=== PATIENT | female | born 1970 | race Caucasian/White ===

== ENCOUNTER → 2020-05-22 14:30 | Outpatient (BNVA) | payer OTHER, SELFPAY | PROVIDERS: PCP Family Medicine; Referring Provider Family Medicine; Visit Provider Physician Assistant | DX: K27.9 Peptic ulcer, site unspecified, unspecified as acute or chronic, without hemorrhage or perforation (principal); B96.81 Helicobacter pylori [H. pylori] as the cause of diseases classified elsewhere | CPT/HCPCS: 99212 ==

== ENCOUNTER → 2020-05-23 08:06 | Outpatient (REF) | payer OTHER, SELFPAY ==
--- NOTE | 2020-05-23 | NM_ITS ---
EXAMINATION: THYROID UPTAKE AND SCAN CLINICAL INFORMATION: Thyrotoxicosis. COMPARISON: None. TECHNIQUE: Following the oral administration of 294 microcuries of I-123 sodium iodide, thyroid uptake was performed and expressed as a percentage of the administrated dose. Gamma scintillation camera images of the thyroid in the anterior and right and left anterior oblique views were obtained using a pinhole collimator following the administration of 10 mCi Tc-99m pertechnetate. FINDINGS: The uptake is 11.5% at 4 hours and 28.7% at 24 hours (Normal radioiodine uptake at 24 hours is 10% to 30%). The radioiodine uptake is normal. The radiopertechnetate thyroid scintigram demonstrates the thyroid gland to be normal in size, shape, and position. There is homogeneous distribution of activity within the the gland with no focal abnormalities noted. The trapping function appears normal. A single anterior radioiodine image is similar to the radio pertechnetate image. NM/NM thyroid w uptake IMPRESSION: Normal radioiodine uptake. Normal thyroid scan.
== END ==
LOC: HO.NUCMED 08:06
PROVIDERS: Visit Provider Family Medicine
DX: E05.90 Thyrotoxicosis, unspecified without thyrotoxic crisis or storm (principal)
CPT/HCPCS: 78014; A9512; A9516

== ENCOUNTER → 2020-07-25 15:09 | Outpatient (BNVA) | payer OTHER, SELFPAY | PROVIDERS: PCP Family Medicine; Referring Provider Family Medicine; Visit Provider Internal Medicine | DX: E05.90 Thyrotoxicosis, unspecified without thyrotoxic crisis or storm (principal); E04.9 Nontoxic goiter, unspecified; E55.9 Vitamin D deficiency, unspecified | CPT/HCPCS: 99202 ==

== ENCOUNTER 2020-09-14 07:38 | Outpatient (REF) | payer OTHER, SELFPAY ==
[2020-09-14 09:38] LABS: Free T4 (Free Thyroxine) 1.08 ng/dL (0.71-1.85); Thyroid Stimulating Hormone 0.08 uIU/mL (0.32-4.0); Vitamin D 25-OH Total 56.4 ng/mL (>30)
[2020-09-15 15:36] LABS: Triiodothyronine T3 Total 104 ng/dL (76-181)
[2020-09-16 17:06] LABS: Thyroglobulin Antibodies 2 IU/mL (< or = 1); Thyroid Peroxidase Antibodies 39 IU/mL (<9)
[2020-09-18 16:11] LABS: Thyroid Stimulating Immunoglob 197 % baseline (<140)
[2020-09-18 16:37] LABS: Thyrotropin Receptor Antibody 3.55 IU/L (<=2.00)
== END 2020-09-14 07:39 | disposition home or self-care (01) ==
LOC: HO.LAB 07:38
PROVIDERS: Physician Assistant; Absent Provider Family Medicine; PCP Family Medicine; Visit Provider Internal Medicine
DX: E05.90 Thyrotoxicosis, unspecified without thyrotoxic crisis or storm (principal); E04.9 Nontoxic goiter, unspecified; A04.8 Other specified bacterial intestinal infections; E55.9 Vitamin D deficiency, unspecified; R11.0 Nausea
CPT/HCPCS: 36415; 82306; 83520; 84439; 84443; 84445; 84480; 86376; 86800; 87338

== ENCOUNTER → 2020-09-16 16:11 | Outpatient (BNVA) | payer OTHER, SELFPAY | PROVIDERS: PCP Family Medicine; Visit Provider Internal Medicine ==

== ENCOUNTER → 2020-09-18 08:02 | Outpatient (BNVA) | payer OTHER, SELFPAY | PROVIDERS: PCP Internal Medicine; Visit Provider Physician Assistant ==

== ENCOUNTER 2020-09-25 08:49 | Outpatient (REF) | payer OTHER, SELFPAY ==
--- NOTE | ~2020-09-25 | FL_ITS ---
EXAMINATION: FL BARIUM SWALLOW CLINICAL INFORMATION: K21.9 - Gastro-esophageal reflux disease without esophagitis COMPARISON: Radionuclide thyroid uptake and scan 05/23/2020 TECHNIQUE: Barium swallow examination is performed using fluoroscopic evaluation in addition to multiple fluoroscopic spot views, including cine images during swallowing. The patient is imaged both upright and prone and using both thick and thin sulfate along with effervescent granules. Fluoroscopy time: 1.4 minutes DAP: 3.71 Gycm2 Images: 53 FINDINGS: Swallowing function is normal and there is no aspiration. The cervical esophagus has no web or diverticulum or stricture. The cervical thoracic junction appears normal. The thoracic esophagus shows normal motility with no obstruction, stricture, or ulceration. There is no hiatal hernia or reflux seen despite use of provocative maneuvers (prone Valsalva and water siphon test, respectively). A cursory view of the upper abdomen shows no gastric outlet obstruction. FL/FL barium swallow IMPRESSION: Normal study.
[2020-09-25 11:13] LABS: Free T4 (Free Thyroxine) 0.97 ng/dL (0.71-1.85)
[2020-09-26 04:27] LABS: Triiodothyronine T3 Total 110 ng/dL (76-181)
== END 2020-09-25 08:50 | disposition home or self-care (01) ==
LOC: HO.XRAY 08:49
PROVIDERS: Absent Provider Internal Medicine; PCP Family Medicine; Visit Provider Physician Assistant
DX: K21.9 Gastro-esophageal reflux disease without esophagitis (principal); R11.2 Nausea with vomiting, unspecified; E05.90 Thyrotoxicosis, unspecified without thyrotoxic crisis or storm; E04.9 Nontoxic goiter, unspecified
CPT/HCPCS: 36415; 74220; 84439; 84480

== ENCOUNTER 2020-09-26 | Outpatient (REF) | payer OTHER, SELFPAY | END 2020-09-26 00:01 | disposition home or self-care (01) | LOC: HO.LNP | PROVIDERS: Visit Provider Physician Assistant | DX: K21.9 Gastro-esophageal reflux disease without esophagitis (principal); A04.8 Other specified bacterial intestinal infections | CPT/HCPCS: 87338 ==

== ENCOUNTER 2020-09-26 14:32 | Outpatient (REF) | payer OTHER, SELFPAY ==
--- NOTE | ~2020-09-26 | US_ITS ---
EXAMINATION: US THYROID CLINICAL INFORMATION: Nontoxic goiter, unspecified. COMPARISON: None. TECHNIQUE: Linear transducer grayscale and color Doppler examination with attention to the region of the thyroid. FINDINGS: SIZE: Measurements of the thyroid lobes and nodules are given in sagittal, anteroposterior and transverse dimensions respectively. Right Thyroid Lobe: 5.9 x 1.8 x 1.5 cm, volume 8.4 mL. Parenchyma: The gland echotexture is homogeneous. Thyroid vascularity is normal. Left Thyroid Lobe: 5.7 x 1.7 x 1.9 cm, volume 10.0 mL. Parenchyma: The gland echotexture is homogeneous. Thyroid vascularity is normal. Isthmus: 0.5 cm in maximum AP dimension. Estimated total number of nodules greater than or equal to 1 cm: 0. Etl Programmer nodules are described as follows: 1. Location: Isthmus. Size: 0.5 x 0.3 x 0.5 cm, volume 0.04 mL. Nodule characteristics: Composition: Solid/almost completely solid (2). Echogenicity: Hypoechoic (2). Shape: Not taller than wide (0). Margins: Smooth (0). Echogenic Foci: None (0). ACR TI-RADS total points: 4 ACR TI-RADS category: 4 NODES: No lymphadenopathy is seen in the tissue surrounding the thyroid gland. US/US thyroid IMPRESSION: Nonsuspicious solitary nodule. Recommend long-term follow-up. ACR TI-RADS RECOMMENDATION REFERENCE: Ultrasound-guided fine-needle aspiration, followup ultrasound, no further follow up. * TR1 (0 point) and TR 2 (2 points): No FNA or follow up * TR3 (3 points): FNA if more than or equal to 2.5 cm in maximum dimension, followup ultrasound in 1, 3 and 5 years if 1.5 to 2.4 cm in maximum dimension. * TR4 (4-6 points): FNA if more than or equal to 1.5 cm in maximum dimension, followup ultrasound in 1, 2, 3 and 5 years if 1 to 1.4 cm in maximum dimension. * TR5 (more than or equal to 7 points): FNA if more than or equal to 1 cm in maximum dimension, followup ultrasound every year for 5 years if 0.5 to 0.9 cm in maximum dimension. * TR3, TR4 or TR5 nodules that are below the size threshold for follow up receive no follow up.
== END 2020-09-26 14:33 | disposition home or self-care (01) ==
LOC: HO.HMGCX 14:32
PROVIDERS: Visit Provider Internal Medicine
DX: E04.9 Nontoxic goiter, unspecified (principal)
CPT/HCPCS: 76536

== ENCOUNTER 2020-09-30 10:11 | Outpatient (REF) | payer OTHER, SELFPAY ==
[2020-09-30 11:45] LABS: Alanine Aminotransferase 13 U/L (0-31); Albumin Level 4.4 g/dL (3.5-5.0); Alkaline Phosphatase 48 U/L (39-117); Aspartate Amino Transferase 18 U/L (5-31); Bilirubin Direct 0.3 mg/dL (0.0-0.5); Total Protein 6.9 g/dL (6.5-8.0)
[2020-09-30 12:08] LABS: Free T4 (Free Thyroxine) 1.07 ng/dL (0.71-1.85); Thyroid Stimulating Hormone 0.03 uIU/mL (0.32-4.0)
[2020-10-01 06:41] LABS: Triiodothyronine T3 Total 113 ng/dL (76-181)
== END 2020-09-30 10:12 | disposition home or self-care (01) ==
LOC: HO.HMGCLDS 10:11
PROVIDERS: PCP Family Medicine; Visit Provider Internal Medicine
DX: E05.90 Thyrotoxicosis, unspecified without thyrotoxic crisis or storm (principal); E04.9 Nontoxic goiter, unspecified
CPT/HCPCS: 36415; 80076; 84439; 84443; 84480

== ENCOUNTER 2020-11-11 14:11 | Outpatient (REF) | payer OTHER, SELFPAY ==
[2020-11-11 17:03] LABS: Alanine Aminotransferase 8 U/L (0-31); Alkaline Phosphatase 49 U/L (39-117); Aspartate Amino Transferase 14 U/L (5-31); Bilirubin Direct 0.2 mg/dL (0.0-0.5); Bilirubin Total 0.6 mg/dL (0.0-1.0); Total Protein 6.7 g/dL (6.5-8.0)
== END 2020-11-11 14:12 | disposition home or self-care (01) ==
LOC: HO.HMGCLDS 14:11
PROVIDERS: PCP Family Medicine; Visit Provider Internal Medicine
DX: E05.90 Thyrotoxicosis, unspecified without thyrotoxic crisis or storm (principal)
CPT/HCPCS: 36415; 80076

== ENCOUNTER → 2020-11-20 13:30 | Outpatient (BNVA) | payer OTHER, SELFPAY | PROVIDERS: PCP Family Medicine; Visit Provider Internal Medicine ==

== ENCOUNTER → 2020-11-26 14:02 | Outpatient (BNVA) | payer OTHER, SELFPAY | PROVIDERS: PCP Family Medicine; Visit Provider Physician Assistant ==

== ENCOUNTER 2021-01-10 12:00 | Outpatient (REF) | payer OTHER, SELFPAY ==
[2021-01-10 14:22] LABS: Free T4 (Free Thyroxine) 1.21 ng/dL (0.71-1.85); Thyroid Stimulating Hormone 0.14 uIU/mL (0.32-4.0)
[2021-01-11 10:07] LABS: Triiodothyronine T3 Total 107 ng/dL (76-181)
== END 2021-01-10 12:01 | disposition home or self-care (01) ==
LOC: HO.LAB 12:00
PROVIDERS: PCP Family Medicine; Visit Provider Internal Medicine
DX: E03.9 Hypothyroidism, unspecified (principal); E05.90 Thyrotoxicosis, unspecified without thyrotoxic crisis or storm
CPT/HCPCS: 36415; 84439; 84443; 84480

== ENCOUNTER → 2021-01-22 12:05 | Outpatient (BNVA) | payer OTHER, SELFPAY | PROVIDERS: PCP Family Medicine; Visit Provider Internal Medicine ==

== ENCOUNTER 2021-04-11 08:29 | Outpatient (REF) | payer OTHER, SELFPAY ==
[2021-04-11 11:54] LABS: Alanine Aminotransferase 16 U/L (0-31); Albumin Level 4.1 g/dL (3.5-5.0); Alkaline Phosphatase 52 U/L (39-117); Aspartate Amino Transferase 19 U/L (5-31); Bilirubin Direct 0.2 mg/dL (0.0-0.5); Bilirubin Total 0.8 mg/dL (0.0-1.0); Total Protein 7.1 g/dL (6.5-8.0)
[2021-04-11 12:07] LABS: Free T4 (Free Thyroxine) 0.99 ng/dL (0.71-1.85); Thyroid Stimulating Hormone 0.41 uIU/mL (0.32-4.0)
[2021-04-13 06:41] LABS: Triiodothyronine T3 Total 102 ng/dL (76-181)
== END 2021-04-11 08:30 | disposition home or self-care (01) ==
LOC: HO.HMGCLDS 08:29
PROVIDERS: PCP Family Medicine; Visit Provider Internal Medicine
DX: E04.9 Nontoxic goiter, unspecified (principal); E05.90 Thyrotoxicosis, unspecified without thyrotoxic crisis or storm
CPT/HCPCS: 36415; 80076; 84439; 84443; 84480

== ENCOUNTER 2021-04-16 13:56 | Outpatient (REF) | payer OTHER, SELFPAY ==
[2021-04-16 17:15] LABS: Free T4 (Free Thyroxine) 0.98 ng/dL (0.71-1.85); Thyroid Stimulating Hormone 0.45 uIU/mL (0.32-4.0)
[2021-04-18 04:42] LABS: Triiodothyronine T3 Total 113 ng/dL (76-181)
== END 2021-04-16 13:57 | disposition home or self-care (01) ==
LOC: HO.HMGCLDS 13:56
PROVIDERS: PCP Family Medicine; Visit Provider Internal Medicine
DX: E05.90 Thyrotoxicosis, unspecified without thyrotoxic crisis or storm (principal); E04.9 Nontoxic goiter, unspecified
CPT/HCPCS: 36415; 84439; 84443; 84480

== ENCOUNTER → 2021-05-07 07:50 | Outpatient (BNVA) | payer OTHER, SELFPAY | PROVIDERS: PCP Family Medicine; Visit Provider Internal Medicine ==

== ENCOUNTER 2021-10-31 15:29 | Outpatient (REF) | payer OTHER, SELFPAY ==
[2021-10-31 16:23] LABS: Free T4 (Free Thyroxine) 1.86 ng/dL (0.71-1.85); Thyroid Stimulating Hormone 0.69 uIU/mL (0.32-4.0)
[2021-11-01 05:27] LABS: Triiodothyronine T3 Total 114 ng/dL (76-181)
[2021-11-05 15:16] LABS: Thyroid Stimulating Immunoglob 182 % baseline (<140)
[2021-11-05 20:17] LABS: Thyrotropin Receptor Antibody 1.78 IU/L (<=2.00)
== END 2021-10-31 15:30 | disposition home or self-care (01) ==
LOC: HO.LAB 15:29
PROVIDERS: PCP Family Medicine; Visit Provider Internal Medicine
DX: E05.90 Thyrotoxicosis, unspecified without thyrotoxic crisis or storm (principal)
CPT/HCPCS: 36415; 83520; 84439; 84443; 84445; 84480

== ENCOUNTER 2022-02-18 09:51 | Outpatient (REF) | payer OTHER, SELFPAY ==
[2022-02-18 12:08] LABS: Free T4 (Free Thyroxine) 0.85 ng/dL (0.71-1.85); Thyroid Stimulating Hormone 0.72 uIU/mL (0.32-4.0)
[2022-02-19 18:17] LABS: Triiodothyronine T3 Total 94 ng/dL (76-181)
== END 2022-02-18 09:52 | disposition home or self-care (01) ==
LOC: HO.HMGCLDS 09:51
PROVIDERS: PCP Family Medicine; Visit Provider Internal Medicine
DX: E05.90 Thyrotoxicosis, unspecified without thyrotoxic crisis or storm (principal)
CPT/HCPCS: 36415; 84439; 84443; 84480

== ENCOUNTER → 2022-03-04 14:07 | Outpatient (BNVA) | payer OTHER, SELFPAY | PROVIDERS: PCP Family Medicine; Visit Provider Internal Medicine | DX: E05.90 Thyrotoxicosis, unspecified without thyrotoxic crisis or storm (principal); Z79.899 Other long term (current) drug therapy | CPT/HCPCS: 99212 ==

== ENCOUNTER 2022-08-28 10:28 | Outpatient (REF) | payer OTHER, SELFPAY ==
[2022-08-28 14:53] LABS: Free T4 (Free Thyroxine) 0.99 ng/dL (0.71-1.85)
[2022-08-30 08:23] LABS: Triiodothyronine T3 Total 118 ng/dL (76-181)
[2022-09-02 15:09] LABS: Thyroid Stimulating Immunoglob 187 % baseline (<140)
== END 2022-08-28 10:29 | disposition home or self-care (01) ==
LOC: HO.10HDL 10:28
PROVIDERS: Visit Provider Internal Medicine
DX: E05.90 Thyrotoxicosis, unspecified without thyrotoxic crisis or storm (principal)
CPT/HCPCS: 36415; 84439; 84443; 84445; 84480

== ENCOUNTER 2023-01-06 15:51 | Outpatient (REF) | payer OTHER, SELFPAY ==
[2023-01-06 17:22] LABS: Free T4 (Free Thyroxine) 0.94 ng/dL (0.71-1.85); Thyroid Stimulating Hormone 0.66 uIU/mL (0.32-4.0)
[2023-01-08 07:03] LABS: Triiodothyronine T3 Total 118 ng/dL (76-181)
== END 2023-01-06 15:52 | disposition home or self-care (01) ==
LOC: HO.LAB 15:51
PROVIDERS: PCP Family Medicine; Visit Provider Internal Medicine
DX: E05.90 Thyrotoxicosis, unspecified without thyrotoxic crisis or storm (principal)
CPT/HCPCS: 36415; 84439; 84443; 84480

== ENCOUNTER 2023-02-09 08:00 | Outpatient (AMB) | payer OTHER, SELFPAY ==
[2023-02-09 08:03] VITALS: BP 122/80; PULSE 70; O2SAT 99; BMI 28.9
--- NOTE | 2023-02-09 08:03 | MHC.OFFVIS ---
Intake Vital Signs 02/09/23 08:03 Height 5 ft 5 in Weight 173 lb 8.061 oz BMI 28.9 BP 122/80 Blood Pressure Location Lt brachial Position Sitting Pulse 70 Pulse Source Pulse Oximeter Pulse Oximetry (%) 99 Oxygen Delivery Method Room Air Intake Visit Reasons: Hyperthyroidism Intake Note: Pt presents to the office today for hyperthyroidism. Allergies No Known Allergies Allergy (Verified 02/09/23 08:06) Medication List - Last Reconciled 02/09/23 by Lucas Chan MD buprenorphine-naloxone 2-0.5 mg (Suboxone) 1 film buccal DAILY fluoxetine (Prozac) 10 mg PO DAILY fluticasone propionate 50 mcg/actuation sprays intranasal methimazole 5 mg PO DAILY norgestimate-ethinyl estradiol 0.25-35 mg-mcg 1 tab PO DAILY omeprazole 40 mg PO DAILY HPI HPI Comments History of Present Illness Details 52 YO F who is seen in F/U for hyperthyroidism. Currently on methimazole 5 mg q.d.. Patient last saw Dr. Ernandez on 03/04/2022. TSI antibodies were positive in 08/2022 She report.s experiencing weight gain a few years ago which prompted her PCP to check her thyroid. She has had a routine TSH assessed since then. In April her TSH was low at 0.09. Her PCP checked an uptake and scan, which was normal, and referred her to Endocrinology. She was asked to have labs repeated. Repeat TSH was again low at 0.08, with FT4 and TT3 WNL. TSI and TRAB antibodies are positive. She was started on Methimazole 5 mg PO daily as of September 2020 and remains on this now. She is tolerating this well without jaundice, rash or frequent infection. TSH has now normalized. Denies any symptoms of hyper or hypothyroidism. Denies any compressive symptoms. Denies any ocular symptoms. She denies using any biotin. She denies a Family history of thyroid disease. She does have symptoms of nausea which are very distressing to her. She did discuss this with her PCP but refused a GI consult. Thyroid Uptake and Scan: 05/23/2020 FINDINGS: The uptake is 11.5% at 4 hours and 28.7% at 24 hours (Normal radioiodine uptake at 24 hours is 10% to 30%). The radioiodine uptake is normal. The radiopertechnetate thyroid scintigram demonstrates the thyroid gland to be normal in size, shape, and position. There is homogeneous distribution of activity within the the gland with no focal abnormalities noted. The trapping function appears normal. A single anterior radioiodine image is similar to the radio pertechnetate image. Thyroid US 09/26/2020: Right Thyroid Lobe: 5.9 x 1.8 x 1.5 cm, volume 8.4 mL. Parenchyma: The gland echotexture is homogeneous. Thyroid vascularity is normal. Left Thyroid Lobe: 5.7 x 1.7 x 1.9 cm, volume 10.0 mL. Parenchyma: The gland echotexture is homogeneous. Thyroid vascularity is normal. Isthmus: 0.5 cm in maximum AP dimension. Estimated total number of nodules greater than or equal to 1 cm: 0. Boat Dispatcher nodules are described as follows: 1. Location: Isthmus. Size: 0.5 x 0.3 x 0.5 cm, volume 0.04 mL. Nodule characteristics: Composition: Solid/almost completely solid (2). Echogenicity: Hypoechoic (2). Shape: Not taller than wide (0). Margins: Smooth (0). Echogenic Foci: None (0). ACR TI-RADS total points: 4 ACR TI-RADS category: 4 NODES: No lymphadenopathy is seen in the tissue surrounding the thyroid gland. Labs: Laboratory Tests 02/18/22 02/18/22 09:58 09:58 TSH 0.72 Free T4 0.85 Total T3 94 C/O overheated, . But feels heat tolerance . No eye problems . No cigarette smoking . Not taking biotin. [facility] Medical History Acid reflux Environmental allergies Goiter Hyperthyroidism Nausea & vomiting Vitamin D deficiency Surgical History No history of previous surgery Family History Father History of cancer Mother Hx of breast cancer Social History Household Members: None Alcohol intake: current Alcohol intake frequency: does not drink Patient Tobacco Use Status: Never used Tobacco Substance Use Type: Marijuana Current occupational status: employed Current occupation: [employer] Physical Exam Const Other: Thyroid gland is normal size weighs about 15 g. There are no thyroid nodules palpated . Reflexes 2+ DTR Assessment & Plan Assessment & Plan (1) Hyperthyroidism: Code(s): E05.90 - Thyrotoxicosis, unspecified without thyrotoxic crisis or storm Plan: This 52-year-old white female with a history of hyperthyroidism due to Graves disease. She is currently on methimazole 5 mg q.d.. She appears to be clinically and biochemically euthyroid. Plan is to discuss with the patient options treatment including the continuation of methimazole versus radioactive iodine versus surgery. We have decided to decrease the methimazole to 2.5 mg and recheck thyroid function studies in 4 weeks along with CBC and liver panel. The probability is that her TSH will become suppressed again and she will need methimazole as 1 set of antibodies is positive namely TSI. If she is not in remission and requires methimazole long-term, she may consider surgical cure. I did go over side effects of methimazole including but not limited to agranulocytosis and liver toxicity Orders: Orders Liver Panel Today E05.90 - Thyrotoxicosis, unspecified without thyrotoxic crisis or storm Triiodothyronine T3 Free 4 Weeks E05.90 - Thyrotoxicosis, unspecified without thyrotoxic crisis or storm Free T4 (Free Thyroxine) 4 Weeks E05.90 - Thyrotoxicosis, unspecified without thyrotoxic crisis or storm Thyroid Stimulating Hormone 4 Weeks E05.90 - Thyrotoxicosis, unspecified without thyrotoxic crisis or storm Complete Blood Count Auto Diff 4 Weeks E05.90 - Thyrotoxicosis, unspecified without thyrotoxic crisis or storm Coding Level of Care Code Est Pt Level 3 (21427) Diagnoses Hyperthyroidism E05.90
== END 2023-02-09 08:38 | disposition home or self-care (01) ==
PROVIDERS: PCP Family Medicine; Visit Provider Internal Medicine Endocrinology, Diabetes & Metabolism
DX: E05.90 Thyrotoxicosis, unspecified without thyrotoxic crisis or storm (principal)
CPT/HCPCS: 99213

== ENCOUNTER → 2023-02-09 08:00 | Outpatient (BNVA) | payer OTHER, SELFPAY | PROVIDERS: PCP Family Medicine; Visit Provider Internal Medicine Endocrinology, Diabetes & Metabolism | DX: E05.90 Thyrotoxicosis, unspecified without thyrotoxic crisis or storm (principal); Z79.899 Other long term (current) drug therapy | CPT/HCPCS: 99212 ==

== ENCOUNTER 2023-03-10 05:07 | Outpatient (REF) | payer OTHER, SELFPAY ==
--- NOTE | ~2023-03-10 | XR_ITS ---
EXAMINATION: XR HIP, RIGHT CLINICAL INFORMATION: Pain. COMPARISON: None available. TECHNIQUE: AP and frog-leg lateral views of the right hip are submitted. FINDINGS: Bony alignment and mineralization are normal. The acetabular joint spaces are well-maintained. There is mild narrowing of the acetabular joint spaces medially. There is subchondral sclerosis of the acetabular roofs, with small peripheral osteophytes noted. The femoral heads are smooth. There is no fracture or dislocation. The sacroiliac joints are symmetric and well-maintained. The pubic symphysis is intact. No focal soft tissue swelling, gas or foreign body is seen. XR/XR hip RT min 2V IMPRESSION: There is mild osteoarthritic change of the bilateral hips. No fracture or dislocation is seen bilaterally.
== END 2023-03-10 05:08 | disposition home or self-care (01) ==
LOC: HO.HOSX 05:07
PROVIDERS: Visit Provider Orthopaedic Surgery
DX: M25.551 Pain in right hip (principal); Z79.899 Other long term (current) drug therapy
CPT/HCPCS: 73502; 99202

== ENCOUNTER 2023-03-10 07:59 | Outpatient (AMB) | payer OTHER, SELFPAY ==
--- NOTE | 2023-03-10 08:03 | A.OFFVIS_ITS ---
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 Patient reports her pain is more on her thigh and she was referred from her PCP for her hip due to her rotation is limited. She states that her pain is like a throbbing pain and it is worse at night. Patient has been noticing her pain getting worse through out the past few weeks. The patient has tried Tylenol which gives her minimal relief. She states that she recently put on 15 lb. She is going to return to the gym and go back on the keto diet that I have done before. Allergies No Known Allergies Allergy (Verified 03/10/23 08:10) Medication List - Last Reconciled 03/10/23 by Carlos Carmen MD buprenorphine-naloxone 2-0.5 mg (Suboxone) 1 film buccal DAILY fluoxetine (Prozac) 10 mg PO DAILY fluticasone propionate 50 mcg/actuation sprays intranasal meloxicam 15 mg PO DAILY methimazole 5 mg PO DAILY norgestimate-ethinyl estradiol 0.25-35 mg-mcg 1 tab PO DAILY omeprazole 40 mg PO DAILY PFSH Medical History Acid reflux Environmental allergies Goiter Hyperthyroidism Nausea & vomiting Vitamin D deficiency Surgical History No history of previous surgery Family History Father History of cancer Mother Hx of breast cancer Social History Household Members: None Alcohol intake: current Alcohol intake frequency: does not drink Patient Tobacco Use Status: Never used Tobacco Substance Use Type: Marijuana Current occupational status: employed Current occupation: [email or web address] Physical Exam Vital Signs: BMI result Body Mass Index 28.8 Const Other: Well-nourished well-developed very friendly female awake alert and oriented x3 in no acute distress Extrem Other: Bilateral lower extremity examination shows good capillary refill, no skin le sions noted, normal sensation light touch Right hip examination shows decreased range of motion when compared to her left hip, mild discomfort with range of motion, no tenderness over her bursa, negat luis daniel straight leg raise test at 70 degrees Results Reviewed Results Reviewed: X-rays of the patient's right hip show moderate joint space narrowing, no acute bony abnormalities Assessment & Plan Assessment & Plan (1) Right hip pain: Code(s): M25.551 - Pain in right hip Plan: Ms. Stephens presents with right hip pain due to early degenerative joint disease as well as possible avascular necrosis of her femoral head. I had a lengthy discussion with patient regarding the treatment options. She wants to hold off on getting an MRI at this time. I did give her a prescription for meloxicam to help with the inflammation. She will continue activities as tolerated. She will contact me prior to her follow-up appointment in 3 months should her symptoms worsen in any way. If her symptoms do worsen significantly over time I will order an MRI of her right hip to further evaluate her for possible avascular necrosis. Feel free to call me at any time should questions regarding her orthopedic management arise. Who I spent 22 minutes in reviewing the patient's records and imaging studies, seeing the patient and documenting in the medical record. Orders: Orders XR hip RT min 2V Today M25.551 - Pain in right hip Medications: New meloxicam 15 mg PO DAILY 30 tabs 3RF Coding Level of Care Code New Pt Level 2 (96907) Diagnoses Right hip pain M25.551
[2023-03-10 08:11] VITALS: BMI 28.8
== END 2023-03-10 08:35 | disposition home or self-care (01) ==
PROVIDERS: PCP Family Medicine; Visit Provider Orthopaedic Surgery
DX: M25.551 Pain in right hip (principal)
CPT/HCPCS: 99202

== ENCOUNTER 2023-04-03 10:06 | Outpatient (REF) | payer OTHER, SELFPAY ==
--- NOTE | ~2023-04-03 | MM_ITS ---
EXAMINATION: MM SCREENING DIGITAL BREAST TOMOSYNTHESIS, BILATERAL CLINICAL INFORMATION: Screening. Asymptomatic. COMPARISON: Mammography: This study is compared with prior exams dating back to 2015. TECHNIQUE: Digital breast tomosynthesis is performed in both the craniocaudal and mediolateral oblique views along with computer-aided detection (CAD). Synthesized 2D images are generated from the tomosynthesis. FINDINGS: There are scattered areas of fibroglandular density (ACR BI-RADS breast composition Category b). There are no significant masses, abnormal calcifications, or other abnormalities. MM/MM tomosynthesis screening BI IMPRESSION: No mammographic evidence of malignancy. ASSESSMENT: BI-RADS BI-RADS 1 - Negative RECOMMENDATION: Routine annual mammography screening. 1 year F/U This examination should not preclude the clinical evaluation of a suspicious palpable abnormality. This patient's information was entered into a reminder system with a target due date for their next mammogram.
== END 2023-04-03 10:07 | disposition home or self-care (01) ==
LOC: HO.MAMMO 10:06
PROVIDERS: PCP Family Medicine; Visit Provider Family Medicine
DX: Z12.31 Encounter for screening mammogram for malignant neoplasm of breast (principal)
CPT/HCPCS: 77063; 77067

== ENCOUNTER → 2023-04-03 10:15 | Outpatient (BNV) | payer OTHER, SELFPAY | PROVIDERS: PCP Family Medicine; Visit Provider Radiology Diagnostic Radiology | DX: Z12.31 Encounter for screening mammogram for malignant neoplasm of breast (principal) | CPT/HCPCS: 77063; 77067 ==

== ENCOUNTER 2023-04-27 15:27 | Outpatient (AMB) | payer OTHER, SELFPAY ==
[2023-04-27 15:29] VITALS: BMI 28.8
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
== END 2023-04-27 16:08 | disposition home or self-care (01) ==
PROVIDERS: PCP Family Medicine; Visit Provider Surgery Vascular Surgery
DX: I83.11 Varicose veins of right lower extremity with inflammation (principal)
CPT/HCPCS: 99203

== ENCOUNTER → 2023-04-27 15:27 | Outpatient (BNVA) | payer OTHER, SELFPAY | PROVIDERS: PCP Family Medicine; Visit Provider Surgery Vascular Surgery ==

== ENCOUNTER 2023-05-05 08:26 | Outpatient (REF) | payer OTHER, SELFPAY ==
--- NOTE | ~2023-05-05 | US_ITS ---
EXAMINATION: US LOWER EXTREMITY VENOUS (REFLUX EXAM), BILATERAL CLINICAL INDICATION: Chronic venous insufficiency with lower extremity varicose veins with inflammation COMPARISON: None. TECHNIQUE: Color flow triplex imaging and compression Doppler was performed to evaluate both the deep and the superficial systems bilaterally. To evaluate the superficial system, the examination was performed in the upright position. Color-flow Doppler ultrasound and compression ultrasound were utilized. In addition, maneuvers were utilized to demonstrate reflux. FINDINGS: 1. DEEP VENOUS ULTRASOUND OF THE RIGHT LOWER EXTREMITY: Common Femoral Vein: Compressible, normal respiratory variation and augmented flow. Femoral Vein: Compressible, normal color flow and augmentation. Popliteal Vein: Compressible, normal augmentation. Deep Reflux: There is no evidence of reflux in the deep system in either the common femoral vein or the popliteal vein. There is no evidence of a Bojorquez's cyst. 2. SUPERFICIAL ULTRASOUND WITH DOPPLER OF RIGHT LOWER EXTREMITY: GREAT SAPHENOUS VEIN: Saphenofemoral Junction: 0.9 cm; Reflux: 0 ms Proximal Thigh: 0.5 cm; Reflux: 0 ms Mid Thigh: 0.4 cm; Reflux: 0 ms Above Knee: 0.5 cm; Reflux: 744 ms At Knee: 0.5 cm; Reflux: 2552 ms Below Knee: 0.4 cm; Reflux: 0 ms Mid Calf: 0.2 cm; Reflux: 0 ms Ankle: 0.2 cm; Reflux: 0 ms DUPLICATED MEDIAL GREAT SAPHENOUS VEIN: Diameter: 0.3 cm Reflux: None DUPLICATED LATERAL GREAT SAPHENOUS VEIN: Diameter: None imaged Reflux: NA SMALL SAPHENOUS VEIN: Proximal: 0.2 cm; Reflux: 0 ms Distal: 0.2 cm; Reflux: 0 ms VEIN OF GIACOMINI: Size: NA Reflux: NA PERFORATORS: Location: Proximal calf into the great saphenous vein Size: 0.3 cm Reflux: None VARICOSITIES: Location: Medial proximal calf off the great saphenous vein Size: 0.6 cm Reflux: 1488 ms 3. DEEP VENOUS ULTRASOUND OF THE LEFT LOWER EXTREMITY: Common Femoral Vein: Compressible, normal respiratory variation and augmented flow. Femoral Vein: Compressible, normal color flow and augmentation. Popliteal Vein: Compressible, normal augmentation. Deep Reflux: There is no evidence of reflux in the deep system in either the common femoral vein or the popliteal vein. There is no evidence of a Bojorquez's cyst. 4. SUPERFICIAL ULTRASOUND WITH DOPPLER OF LEFT LOWER EXTREMITY: GREAT SAPHENOUS VEIN: Saphenofemoral Junction: 0.5 cm; Reflux: 0 ms Proximal Thigh: 0.5 cm; Reflux: 0 ms Mid Thigh: 0.4 cm; Reflux: 0 ms Above Knee: 0.4 cm; Reflux: 0 ms At Knee: 0.4 cm; Reflux: 2744 ms Below Knee: 0.3 cm; Reflux: 0 ms Mid Calf: 0.2 cm; Reflux: 0 ms Ankle: 0.2 cm; Reflux: 0 ms DUPLICATED MEDIAL GREAT SAPHENOUS VEIN: Diameter: None imaged Reflux: NA DUPLICATED LATERAL GREAT SAPHENOUS VEIN: Diameter: 0.3 cm Reflux: None SMALL SAPHENOUS VEIN: Proximal: 0.3 cm; Reflux: 0 ms Distal: 0.1 cm; Reflux: 0 ms VEIN OF GIACOMINI: Size: NA Reflux: NA PERFORATORS: Location: At knee into the great saphenous vein and posterior mid calf Size: 0.2 to 0.3 cm Reflux: 2980 ms VARICOSITIES: Location: At knee off the great saphenous vein Size: 0.3 cm Reflux: None US/US venous duplex LE BI IMPRESSION: Right: Focal areas of segmental reflux within the great saphenous vein at the distal thigh and knee. Large varicose vein arising in the proximal calf off the great saphenous vein with reflux as described above Left: Focal area of segmental reflux within the great saphenous vein at the level of the knee. There is associated heel seat trimmer vein at this level with reflux. Varicose veins in the left lower extremity without significant reflux.
== END 2023-05-05 08:27 | disposition home or self-care (01) ==
LOC: HO.US 08:26
PROVIDERS: Visit Provider Surgery Vascular Surgery
DX: I83.11 Varicose veins of right lower extremity with inflammation (principal)
CPT/HCPCS: 93970

== ENCOUNTER 2023-08-12 06:33 | Outpatient (REF) | payer OTHER, SELFPAY ==
[2023-08-12 11:46] LABS: MANUAL DIFF FLAG NO
[2023-08-12 12:11] LABS: Basophils Absolute Auto 0.1 X10*3/uL (0.0-0.2); Basophils Percent Auto 1.2 % (0-2); Eosinophils Absolute Auto 0.1 X10*3/uL (0.0-0.4); Eosinophils Percent Auto 3.2 % (0-4); Hematocrit 37.7 % (37.0-47.0); Hemoglobin 12.4 g/dl (12.0-16.0); Lymphocytes Absolute Auto 2.1 X10*3/uL (1.2-4.9); Lymphocytes Percent Auto 48.5 % (20-40); Mean Corpuscular HGB Conc 32.9 g/dl (31.0-35.0); Mean Corpuscular Volume 94.3 fL (80.0-98.0); Mean Platelet Volume 11.6 fL (9.4-12.3); Monocytes Absolute Auto 0.3 X10*3/uL (0.1-1.2); Monocytes Percent Auto 7.4 % (2-11); Neutrophils Absolute Auto 1.7 x10*3/uL (2.0-8.3); Neutrophils Percent Auto 39.7 % (45-73); Platelet Count 214 X10*3/uL (160-400); Red Cell Distribution Width 14.2 % (11.0-16.0); White Blood Count 4.3 X10*3/uL (4.8-10.8)
[2023-08-12 12:14] LABS: Alanine Aminotransferase 12 U/L (0-31); Albumin Level 3.5 g/dL (3.5-5.0); Alkaline Phosphatase 38 U/L (39-117); Aspartate Amino Transferase 16 U/L (5-31); Bilirubin Direct 0.3 mg/dL (0.0-0.5); Bilirubin Total 0.6 mg/dL (0.0-1.0); Total Protein 6.3 g/dL (6.5-8.0)
[2023-08-12 12:35] LABS: Free T4 (Free Thyroxine) 0.91 ng/dL (0.71-1.85); Thyroid Stimulating Hormone 0.95 uIU/mL (0.32-4.0)
[2023-08-13 06:49] LABS: Triiodothyronine T3 Free 2.9 pg/mL (2.3-4.2)
== END 2023-08-12 06:34 | disposition home or self-care (01) ==
LOC: HO.HMGCLDS 06:33
PROVIDERS: PCP Family Medicine; Visit Provider Internal Medicine Endocrinology, Diabetes & Metabolism
DX: E05.90 Thyrotoxicosis, unspecified without thyrotoxic crisis or storm (principal)
CPT/HCPCS: 36415; 80076; 84439; 84443; 84481; 85025

== ENCOUNTER 2023-08-24 08:44 | Outpatient (AMB) | payer OTHER, SELFPAY ==
[2023-08-24 08:50] VITALS: BMI 28.8
--- NOTE | 2023-08-24 08:50 | MHC.OFFVIS ---
Intake Vital Signs 08/24/23 08:50 Height 5 ft 5 in Weight 173 lb BMI 28.8 Intake Visit Reasons: ov-Pain of right hip Intake Note: Agustina is a 52 year old female who presents for a follow up for Right hip pain. Patient reports it has improved after taking some time off from the gym. She did get a massage several weeks ago which gave her fairly good relief. She has returned to working out at the gym after work. She has considered buying a massage gun. Allergies No Known Allergies Allergy (Verified 08/24/23 08:54) Medication List - Last Reconciled 08/24/23 by Carlos Carmen MD buprenorphine-naloxone 2-0.5 mg (Suboxone) 1 film buccal DAILY fluoxetine (Prozac) 10 mg PO DAILY fluticasone propionate 50 mcg/actuation sprays intranasal meloxicam 15 mg PO DAILY methimazole 5 mg PO DAILY norgestimate-ethinyl estradiol 0.25-35 mg-mcg 1 tab PO DAILY omeprazole 40 mg PO DAILY PFSH Medical History Acid reflux Nausea & vomiting Goiter Vitamin D deficiency Hyperthyroidism Environmental allergies Surgical History No history of previous surgery Family History Father History of cancer Mother Hx of breast cancer Social History Household Members: None Alcohol intake: current Alcohol intake frequency: does not drink Patient Tobacco Use Status: Never used Tobacco Substance Use Type: Marijuana Current occupational status: employed Current occupation: [employer] Physical Exam Vital Signs: BMI result Body Mass Index 28.8 Const Other: Well-nourished well-developed very friendly female awake alert and oriented x3 in no acute distress Extrem Other: Bilateral lower extremity examination shows good capillary refill, no skin lesions noted, normal sensation light touch Right hip examination shows full range of motion when compared to her left hip, minimal pain with range of motion, mild tenderness over her bursa Assessment & Plan Assessment & Plan (1) Right hip pain: Code(s): M25.551 - Pain in right hip Plan Ms. Stephens presents with right hip discomfort most likely due to greater trochanteric bursitis. I had a lengthy discussion with the patient regarding the treatment options. At this point the patient's symptoms are improving with activity modifications. She will follow up with me on an as-needed basis should her symptoms worsen in any way. Feel free to call me at any time should questions regarding her orthopedic management arise. I spent 20 minutes in reviewing the patient's records and imaging studies, seeing the patient and documenting in the medical record. Coding Level of Care Code Est Pt Level 2 (87960) Diagnoses Right hip pain M25.551
== END 2023-08-24 09:53 | disposition home or self-care (01) ==
PROVIDERS: PCP Family Medicine; Visit Provider Orthopaedic Surgery
DX: M25.551 Pain in right hip (principal)
CPT/HCPCS: 99213

== ENCOUNTER → 2023-08-24 08:44 | Outpatient (BNVA) | payer OTHER, SELFPAY | PROVIDERS: PCP Family Medicine; Visit Provider Orthopaedic Surgery | DX: M25.551 Pain in right hip (principal) | CPT/HCPCS: 99212 ==

== ENCOUNTER 2023-10-21 06:29 | Outpatient (REF) | payer OTHER, SELFPAY ==
[2023-10-21 10:18] LABS: MANUAL DIFF FLAG NO
[2023-10-21 10:24] LABS: Basophils Percent Auto 0.9 % (0-2); Eosinophils Absolute Auto 0.1 X10*3/uL (0.0-0.4); Hematocrit 38.4 % (37.0-47.0); Hemoglobin 12.6 g/dl (12.0-16.0); Imm Gran Abs Auto 0.01 X10*3/uL (0.00-0.03); Imm Gran Pct Auto 0.2 % (0.0-0.4); Lymphocytes Absolute Auto 2.1 X10*3/uL (1.2-4.9); Lymphocytes Percent Auto 46.9 % (20-40); Mean Corpuscular HGB Conc 32.8 g/dl (31.0-35.0); Mean Corpuscular Hemoglobin 31.5 pg (27.0-33.0); Mean Platelet Volume 11.3 fL (9.4-12.3); Monocytes Absolute Auto 0.4 X10*3/uL (0.1-1.2); Monocytes Percent Auto 9.3 % (2-11); Neutrophils Absolute Auto 1.7 x10*3/uL (2.0-8.3); Neutrophils Percent Auto 39.7 % (45-73); Platelet Count 246 X10*3/uL (160-400); Red Cell Distribution Width 13.2 % (11.0-16.0); White Blood Count 4.4 X10*3/uL (4.8-10.8)
== END 2023-10-21 06:30 | disposition home or self-care (01) ==
LOC: HO.HMGCLDS 06:29
PROVIDERS: PCP Family Medicine; Visit Provider Internal Medicine Endocrinology, Diabetes & Metabolism
DX: E05.90 Thyrotoxicosis, unspecified without thyrotoxic crisis or storm (principal)
CPT/HCPCS: 36415; 85025

== ENCOUNTER 2023-10-27 16:27 | Outpatient (AMB) | payer OTHER, SELFPAY ==
[2023-10-27 16:31] VITALS: BP 86/54; PULSE 81; BMI 27.7
--- NOTE | 2023-10-27 16:31 | MHC.OFFVIS ---
Intake Vital Signs 10/27/23 16:31 Height 5 ft 5 in Weight 166 lb 10.711 oz BMI 27.7 BP 86/54 L Blood Pressure Location Rt brachial Position Sitting Pulse 81 Pulse Source Pulse Oximeter Intake Visit Reasons: f/u Hyperthyroidism-confirmed Intake Note: Patient present today for Hyperthyroidism follow up visit. 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 Currently on methimazole 5 mg q.d.. Patient last saw Dr. Ernandez on 03/04/2022. TSI antibodies were positive in 08/2022 She report.s experiencing weight gain a few years ago which prompted her PCP to check her thyroid. She has had a routine TSH assessed since then. In April her TSH was low at 0.09. Her PCP checked an uptake and scan, which was normal, and referred her to Endocrinology. She was asked to have labs repeated. Repeat TSH was again low at 0.08, with FT4 and TT3 WNL. TSI and TRAB antibodies are positive. She was started on Methimazole 5 mg PO daily as of September 2020 and remains on this now. She is tolerating this well without jaundice, rash or frequent infection. TSH has now normalized. Denies any symptoms of hyper or hypothyroidism. Denies any compressive symptoms. Denies any ocular symptoms. She denies using any biotin. She denies a Family history of thyroid disease. She does have symptoms of nausea which are very distressing to her. She did discuss this with her PCP but refused a GI consult. Thyroid Uptake and Scan: 05/23/2020 FINDINGS: The uptake is 11.5% at 4 hours and 28.7% at 24 hours (Normal radioiodine uptake at 24 hours is 10% to 30%). The radioiodine uptake is normal. The radiopertechnetate thyroid scintigram demonstrates the thyroid gland to be normal in size, shape, and position. There is homogeneous distribution of activity within the the gland with no focal abnormalities noted. The trapping function appears normal. A single anterior radioiodine image is similar to the radio pertechnetate image. Thyroid US 09/26/2020: Right Thyroid Lobe: 5.9 x 1.8 x 1.5 cm, volume 8.4 mL. Parenchyma: The gland echotexture is homogeneous. Thyroid vascularity is normal. Left Thyroid Lobe: 5.7 x 1.7 x 1.9 cm, volume 10.0 mL. Parenchyma: The gland echotexture is homogeneous. Thyroid vascularity is normal. Isthmus: 0.5 cm in maximum AP dimension. Estimated total number of nodules greater than or equal to 1 cm: 0. 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 Location: Isthmus. Size: 0.5 x 0.3 x 0.5 cm, volume 0.04 mL. Nodule characteristics: Composition: Solid/almost completely solid (2). Echogenicity: Hypoechoic (2). Shape: Not taller than wide (0). Margins: Smooth (0). Echogenic Foci: None (0). ACR TI-RADS total points: 4 ACR TI-RADS category: 4 NODES: No lymphadenopathy is seen in the tissue surrounding the thyroid gland. Labs: Laboratory Tests 02/18/22 02/18/22 09:58 09:58 TSH 0.72 Free T4 0.85 Total T3 94 C/O overheated, . But feels heat tolerance . No eye problems . No cigarette smoking . Not taking biotin. [facility] Medical History Acid reflux Nausea & vomiting Goiter Vitamin D deficiency Hyperthyroidism Environmental allergies Surgical History No history of previous surgery Family History Father History of cancer Mother Hx of breast cancer Social History Household Members: None Alcohol intake: current Alcohol intake frequency: does not drink Patient Tobacco Use Status: Never used Tobacco Substance Use Type: Marijuana Current occupational status: employed Current occupation: [employer] Physical Exam Vital Signs: BMI result Body Mass Index 27.7 Const Other: Thyroid gland is n enlarged in size weighs about 25 g. There are no thyroid nodules palpated . Reflexes 2+ DTR Assessment & Plan Assessment & Plan (1) Hyperthyroidism: Code(s): E0. - Thyrotoxicosis, unspecified without thyrotoxic crisis or storm Plan: This 53-year-old white female with a history of hyperthyroidism due to Graves disease. She is currently on methimazole 5 mg q.d.. She appears to be clinically and biochemically euthyroid. Plan is to hold the methimazole recheck thyroid function studies along with TRAB antibody in 4 weeks' time to see if the patient is remission. Antibodies were -2 years ago. If hyperthyroidism recurs, we will restart methimazole and talk about definitive therapy like surgery or radioactive iodine Orders: Orders Thyroid Stimulating Hormone 4 Weeks E05.90 - Thyrotoxicosis, unspecified without thyrotoxic crisis or storm Thyrotropin Receptor Antibody 4 Weeks E05.90 - Thyrotoxicosis, unspecified without thyrotoxic crisis or storm Free T4 (Free Thyroxine) 4 Weeks E05.90 - Thyrotoxicosis, unspecified without thyrotoxic crisis or storm Triiodothyronine T3 Free 4 Weeks E05.90 - Thyrotoxicosis, unspecified without thyrotoxic crisis or storm Medications: Discontinued methimazole Discontinued Reason: Doctor's Order 5 mg PO DAILY 90 tabs 1RF E05.90 - Thyrotoxicosis, unspecified without thyrotoxic crisis or storm Coding Level of Care Code Est Pt Level 3 (46348) Diagnoses Hyperthyroidism E05.90
== END 2023-10-27 16:54 | disposition home or self-care (01) ==
PROVIDERS: PCP Family Medicine; Visit Provider Internal Medicine Endocrinology, Diabetes & Metabolism
DX: E05.90 Thyrotoxicosis, unspecified without thyrotoxic crisis or storm (principal)
CPT/HCPCS: 99213

== ENCOUNTER → 2023-10-27 16:27 | Outpatient (BNVA) | payer OTHER, SELFPAY | PROVIDERS: PCP Family Medicine; Visit Provider Internal Medicine Endocrinology, Diabetes & Metabolism | DX: E05.90 Thyrotoxicosis, unspecified without thyrotoxic crisis or storm (principal) | CPT/HCPCS: 99212 ==

== ENCOUNTER 2023-12-16 08:12 | Outpatient (REF) | payer OTHER, SELFPAY ==
[2023-12-16 11:17] LABS: Free T4 (Free Thyroxine) 1.02 ng/dL (0.71-1.85); Thyroid Stimulating Hormone 0.97 uIU/mL (0.32-4.0)
[2023-12-17 18:49] LABS: Triiodothyronine T3 Free 3.3 pg/mL (2.3-4.2)
[2023-12-19 19:59] LABS: Thyrotropin Receptor Antibody 1.55 IU/L (<=2.00)
== END 2023-12-16 08:13 | disposition home or self-care (01) ==
LOC: HO.10HDL 08:12
PROVIDERS: Visit Provider Internal Medicine Endocrinology, Diabetes & Metabolism
DX: E05.90 Thyrotoxicosis, unspecified without thyrotoxic crisis or storm (principal)
CPT/HCPCS: 36415; 83520; 84439; 84443; 84481

== ENCOUNTER 2023-12-16 08:20 | Emergency (ER) | payer OTHER, SELFPAY ==
[2023-12-16 08:23] VITALS: BP 142/81; PULSE 89; RESP 18; TEMP 36.9; O2SAT 100; BMI 25.9
[2023-12-16 08:38] LABS: MANUAL DIFF FLAG NO
[2023-12-16 08:39] LABS: Basophils Percent Auto 0.4 % (0-2); Hematocrit 41.6 % (37.0-47.0); Hemoglobin 14.5 g/dl (12.0-16.0); Imm Gran Abs Auto 0.01 X10*3/uL (0.00-0.03); Imm Gran Pct Auto 0.2 % (0.0-0.4); Lymphocytes Absolute Auto 1.2 X10*3/uL (1.2-4.9); Lymphocytes Percent Auto 22.8 % (20-40); Mean Corpuscular HGB Conc 34.9 g/dl (31.0-35.0); Mean Corpuscular Hemoglobin 32.3 pg (27.0-33.0); Mean Corpuscular Volume 92.7 fL (80.0-98.0); Mean Platelet Volume 10.8 fL (9.4-12.3); Monocytes Absolute Auto 0.8 X10*3/uL (0.1-1.2); Neutrophils Absolute Auto 3.3 x10*3/uL (2.0-8.3); Neutrophils Percent Auto 61.6 % (45-73); Platelet Count 210 X10*3/uL (160-400); Red Blood Count 4.49 X10*6/uL (4.20-5.50); Red Cell Distribution Width 12.5 % (11.0-16.0); White Blood Count 5.4 X10*3/uL (4.8-10.8)
[2023-12-16 08:58] LABS: Alanine Aminotransferase 34 U/L (0-31); Albumin Level 4.3 g/dL (3.5-5.0); Alkaline Phosphatase 49 U/L (39-117); Anion Gap 14 (12-20); Aspartate Amino Transferase 29 U/L (5-31); Bilirubin Total 0.9 mg/dL (0.0-1.0); Blood Urea Nitrogen 9 mg/dL (9-16); Calcium 9.3 mg/dL (8.4-10.2); Carbon Dioxide 26 mmol/L (22-29); Chloride 103 mmol/L (96-108); Creatinine Clr Calc Pharmacy 85.3; Estimated Glomerular Filt Rate > 60; Glucose Random 110 mg/dL (60-115); Lipase 31 U/L (8-78); Sodium 139 mmol/L (135-145); Total Protein 7.3 g/dL (6.5-8.0)
--- NOTE | 2023-12-16 08:59 | ED.NAVMDI ---
HPI - Nausea/Vomiting/Diarrhea General Chief complaint: Nausea/Vomiting/Diarrhea Stated complaint: vomiting dehydrated Time Seen by Provider: 12/16/23 08:51 Source: patient, RN notes reviewed and old records reviewed Mode of arrival: ambulatory Limitations: no limitations History of Present Illness ED Provider: Pippa Kohli PA-C HPI Narrative: 53 yo female with history of gastritis, history of H. pylori in the past, Grave's disease, and acid reflux, presents to the ED for complaints of persistent nausea, vomiting, and abdominal discomfort. Describes having an endoscopy in July of this year that revealed gastritis. She states vomiting began around Mother's day and she has vomited once weekly since. On Wednesday, she began vomiting and retching daily. Last episode was last night. She states food, smells, and movement trigger nausea and vomiting. Denies blood in vomit. She describes decreased oral intake as she has been unable to tolerate food and fluids without feeling nauseous. She describes diffuse abdominal discomfort. States it feels empty and strained from frequent retching. Endorses associated hot flashes and diaphoresis when vomiting. Last BM this morning. Denies blood in stool. Describes BMs have been regular. Denies headaches, chest pain, and SOB. Endorses scratchy throat that began 2 days ago. She describes last menstrual period around September 2023 before being started on oral contraception. She has reportedly since stopped oral contraceptive about one month ago. Also stopped methimazole at this time, she states she was told she no longer needed it and may contribute to GI upset. MD elicited complaint: nausea, vomiting and abdominal pain Pertinent past history: other (Gastritis, H. pylori, acid reflux) Onset (ago): day(s) Description of vomiting: food contents, watery and continuous Associated nausea: Yes Associated abdominal pain: Yes Location of pain: diffuse Pain consistency: constant Exacerbating factors: eating, medication and movement Relieving factors: none Associated symptoms: loss of appetite and nausea/vomiting Related Data Home Medications ?Medication ?Instructions ?Recorded ?Confirmed buprenorphine 2 mg-naloxone 0.5 mg 1 film buccal DAILY 05/22/20 10/27/23 sublingual film (Suboxone) fluticasone propionate 50 spray intranasal 07/25/20 10/27/23 mcg/actuation nasal spray,suspension fluoxetine 10 mg capsule (Prozac) 10 mg PO DAILY 11/26/20 10/27/23 norgestimate 0.25 mg-ethinyl 1 tab PO DAILY 02/09/23 10/27/23 estradiol 35 mcg tablet omeprazole 40 mg capsule,delayed 40 mg PO DAILY 02/09/23 10/27/23 release Previous Rx's ?Medication ?Instructions ?Recorded meloxicam 15 mg tablet 15 mg PO DAILY #30 tabs 03/10/23 ondansetron 4 mg disintegrating 4 mg PO Q8H PRN nausea and 12/16/23 tablet vomiting #7 tabs sucralfate 1 gram tablet (Carafate) 1 g PO BID #60 tabs 12/16/23 Allergies Allergy/AdvReac Type Severity Reaction Status Date / Time No Known Allergies Allergy Verified 12/16/23 08:27 Review of Systems Review of Systems: Yes all other systems are reviewed and are negative Gastrointestinal: Gastrointestinal: Reports nausea PMFSH Past Medical History Medical History Acid reflux Nausea & vomiting Goiter Vitamin D deficiency Hyperthyroidism Environmental allergies Surgical History No history of previous surgery Family History Family History Father History of cancer Mother Hx of breast cancer Social History Social History Household Members: None Alcohol intake: current Alcohol intake frequency: does not drink Patient Tobacco Use Status: Never used Tobacco Substance Use Type: Marijuana Advance Directives: No Advance Directives Information Provided: Yes Current occupational status: employed Current occupation: [employer] Physical Exam Vital Signs: Vital Signs: Last Vital Signs Temp 97.4 F 12/16/23 12:26 Pulse 71 12/16/23 12:26 Resp 15 12/16/23 12:26 BP 116/63 12/16/23 12:26 Pulse Ox 99 12/16/23 12:26 O2 Del Method Room Air 12/16/23 12:26 BMI result Body Mass Index 25.9 Appearance: Alert. Oriented X3. No acute distress. Head: normocephalic, atraumatic. Eyes: Pupils equal, round and reactive to light. ENT: Pharynx normal. No tonsillar swelling or exudate. Neck: Normal inspection. Neck supple. CVS: Normal heart rate and rhythm. Pulses normal. Respiratory: No respiratory distress. Breath sounds normal. Abdomen: Soft. No rigidity or guarding. Tenderness to palpation diffusely, mildly worse in RLQ. +BS x4 Skin: Skin warm and dry. Normal skin color. Normal skin turgor. No rashes. Extremities: No lower extremity edema. No joint swelling. Neuro/psych: Oriented X 3. No motor deficit. No sensory deficit. Normal speech and cognition. Medications Administered Discontinued Medications Generic Name Dose Route Start Last Admin Trade Name Freq PRN Reason Stop Dose Admin Al Hydroxide/Mg Hydroxide 30 ml 12/16/23 10:25 12/16/23 11:25 Magnesium Hydrox/Alum Hydrox 30 Ml Oral.Susp PO 12/16/23 10:26 30 ml ONCE ONE Administration Sodium Chloride 1,000 mls @ 999 mls/hr 12/16/23 09:00 12/16/23 11:27 Ns IVCONT 12/16/23 10:00 Infused .Q1H1M JAYLEN Infusion Lidocaine HCl 15 ml 12/16/23 10:25 12/16/23 11:25 Lidocaine Hcl Viscous 2 % 15 Ml Solution MUCOUS MEM 12/16/23 10:26 15 ml ONCE ONE Administration Ondansetron HCl 4 mg 12/16/23 08:59 12/16/23 09:17 Ondansetron Hcl 4 Mg/2 Ml Vial IVPUSH 12/16/23 09:00 4 mg ONCE ONE Administration Sucralfate 1 gm 12/16/23 10:26 12/16/23 11:25 Sucralfate Oral Suspension 1 Gm/10 Ml Oral.Susp PO 12/16/23 10:27 1 gm ONCE ONE Administration Medical Decision Making Medical Decision Making [facility] Narrative: 53 yo female with history of gastritis, history of H. pylori in the past, Grave's disease, and acid reflux, presents to the ED for complaints of persistent nausea, vomiting, and abdominal discomfort. She states vomiting began around Mother's day and she has vomited once weekly since. On Wednesday, she began vomiting and retching daily. Last episode was last night. Denies blood in vomit. Diffuse abdominal tenderness upon palpation, mildly worse in RLQ but no rigidity or guarding. Laboratory results are unremarkable. No leukocytosis. Lipase and LFTs wnl. TSH wnl. Serology positive for COVID. GI symptoms likely exacerbated due to COVID infection and likely untreated gastritis. she was given GI cocktail in the emergency department with improvement in her symptoms. She is tolerating p.o.. She has an appointment with GI coming up in the next couple of weeks. Will plan to start her on Carafate in the meantime. She is stable for discharge with GI follow-up. Differential Diagnosis Differential Diagnoses: The differential diagnosis associated with the presentation includes COVID-19, gastritis, H. pylori infection, viral gastroenteritis Lab Data MDM Lab Attestation statement: I reviewed the patient's lab results. No leukocytosis. Lipase and LFTs wnl. TSH wnl. Serology positive for COVID. 12/16/23 08:33 12/16/23 08:33 Labs: Lab Results 12/16/23 Range/Units 08:33 WBC 5.4 (4.8-10.8) X10*3/uL RBC 4.49 (4.20-5.50) X10*6/uL Hgb 14.5 (12.0-16.0) g/dl Hct 41.6 (37.0-47.0) % MCV 92.7 (80.0-98.0) fL MCH 32.3 (27.0-33.0) pg MCHC 34.9 (31.0-35.0) g/dl RDW 12.5 (11.0-16.0) % Plt Count 210 (160-400) X10*3/uL MPV 10.8 (9.4-12.3) fL Immature Gran % (Auto) 0.2 (0.0-0.4) % Neut % (Auto) 61.6 (45-73) % Lymph % (Auto) 22.8 (20-40) % [place] % (Auto) 15.0 H (2-11) % Eos % (Auto) 0.0 (0-4) % Baso % (Auto) 0.4 (0-2) % Lymph # (Auto) 1.2 (1.2-4.9) X10*3/uL [place] # (Auto) 0.8 (0.1-1.2) X10*3/uL Eos # (Auto) 0.0 (0.0-0.4) X10*3/uL Baso # (Auto) 0.0 (0.0-0.2) X10*3/uL Abs Immat Gran (auto) 0.01 (0.00-0.03) X10*3/uL Absolute Neuts (auto) 3.3 (2.0-8.3) x10*3/uL Absolute Nucleated RBC 0.000 (0.0-0.012) X10*3/uL Nucleated RBC % (auto) 0.0 (0.0-0.2) /100WBC Sodium 139 (135-145) mmol/L Potassium 4.0 (3.3-5.1) mmol/L Chloride 103 (96-108) mmol/L Carbon Dioxide 26 (22-29) mmol/L Anion Gap 14 (12-20) BUN 9 (9-16) mg/dL Creatinine 0.77 (0.5-1.4) mg/dL Estim Creat Clear Calc 85.3 Estimated GFR > 60 Random Glucose 110 (60-115) mg/dL Calcium 9.3 (8.4-10.2) mg/dL Total Bilirubin 0.9 (0.0-1.0) mg/dL AST 29 (5-31) U/L ALT 34 H (0-31) U/L Alkaline Phosphatase 49 (39-117) U/L Total Protein 7.3 (6.5-8.0) g/dL Albumin 4.3 (3.5-5.0) g/dL Lipase 31 (8-78) U/L TSH 1.02 (0.32-4.0) uIU/mL Influenza Type A (PCR) NEGATIVE (Negative) Influenza Type B (PCR) NEGATIVE (Negative) RSV RNA Qual (PCR) NEGATIVE (Negative) SARS-CoV-2 RNA (RT-PCR) POSITIVE A (Negative) External Record Review External record reviewed: Inpatient record, Office record and Outpatient record Tests considered The following testing was considered but not selected: CT of abdomen and pelvis considered however there are abdomen soft with no guarding or rigidity. Prescription Management I considered prescription management with: Other Chronic Conditions Patient?s care impacted by: Other (Graves disease, gastritis, H pylori) Critical Care Time Critical Care Time Critical Care Time: No Discharge Plan Discharge Clinical Impression: COVID-19, Gastritis Patient Disposition: Home, Self-Care Instructions: Gastritis (DC), Diet for Stomach Ulcers and Gastritis (ED) Additional Instructions: Your lab workup today was unremarkable. You were found to have COVID-19. Vital signs were stable. Your symptoms are most likely due to gastritis which is and irritation and inflammation of your stomach lining. Start taking the prescribed medication as directed for this. Stick to a bland diet. Avoid foods high in acid, avoid alcohol and NSAID medications like Aleve, Motrin, Advil or ibuprofen. Follow up with your doctor as needed. Follow up with GI and bring your EGD documentation if you can find it If you develop new or worsening symptoms call 911 or come back to the ER for further evaluation. Prescriptions: New sucralfate [Carafate] 1 gram tablet 1 g PO BID Qty: 60 0RF ondansetron 4 mg tablet,disintegrating 4 mg PO Q8H PRN (Reason: nausea and vomiting) Qty: 7 0RF No Action fluticasone propionate 50 mcg/actuation spray,suspension intranasal fluoxetine [Prozac] 10 mg capsule 10 mg PO DAILY buprenorphine-naloxone [Suboxone] 2-0.5 mg film 1 film buccal DAILY Rx Instructions: place 1 strip/tab under (each) side of tongue omeprazole 40 mg capsule,delayed release(DR/EC) 40 mg PO DAILY norgestimate-ethinyl estradiol 0.25-35 mg-mcg tablet 1 tab PO DAILY meloxicam 15 mg tablet 15 mg PO DAILY Qty: 30 3RF Referrals: [facility] [Provider Group] Joyce Isaacs MD [Primary Care Provider] - Stand Alone Forms: Work/School Release Discharge Date/Time: 12/16/23 13:36 Print Language: Maltese
[2023-12-16] MEDS: 0.9 % Sodium Chloride 1,000 ML 999 ML IVCONT (09:15)
[2023-12-16] MEDS: ondansetron HCL 4 MG/2 ML VIAL IVPUSH (09:17)
[2023-12-16 09:18] LABS: Influenza A PCR NEGATIVE (Negative); Influenza B PCR NEGATIVE (Negative); Resp Syncy Virus RNA Qual PCR NEGATIVE (Negative); SARS COV2 PCR INHOUSE POSITIVE (Negative)
[2023-12-16 10:00] VITALS: BP 115/57; PULSE 60; RESP 17; TEMP 36.6; O2SAT 99
[2023-12-16 10:20] LABS: Thyroid Stimulating Hormone 1.02 uIU/mL (0.32-4.0)
[2023-12-16] MEDS: Sucralfate Oral Suspension 1 GM/10 ML ORAL.SUSP PO (11:25)
[2023-12-16] MEDS: Lidocaine HCl Viscous 2 % 15 ML SOLUTION MUCOUS MEM (11:25)
[2023-12-16] MEDS: Magnesium Hydrox/Alum Hydrox 30 ML ORAL.SUSP PO (11:25)
[2023-12-16 12:26] VITALS: BP 116/63; PULSE 71; RESP 15; TEMP 36.3; O2SAT 99
== END 2023-12-16 13:36 | disposition home or self-care (01) ==
PROVIDERS: Physician Assistant; Emergency Provider Emergency Medicine; PCP Family Medicine
DX: U07.1 COVID-19 (principal); K29.70 Gastritis, unspecified, without bleeding; R11.2 Nausea with vomiting, unspecified; R10.9 Unspecified abdominal pain; F12.90 Cannabis use, unspecified, uncomplicated
CPT/HCPCS: 0241U; 80053; 83690; 84443; 85025; 96361; 96374; 99283; 99284; J2405

== ENCOUNTER 2023-12-29 07:56 | Outpatient (AMB) | payer OTHER, SELFPAY ==
[2023-12-29 07:59] VITALS: BP 117/75; PULSE 67; BMI 26.5
--- NOTE | 2023-12-29 07:59 | MHC.OFFVIS ---
Vital Signs 12/29/23 07:59 Height 5 ft 6 in Weight 164 lb 5.547 oz BMI 26.5 BP 117/75 Blood Pressure Location Lt brachial Position Sitting Pulse 67 Intake Visit Reasons: vomiting and nausea Intake Note: Agustina presents in the office as a new patient for nausea and vomiting. CC: Questioning H pylori breathe test. She states that she was having nausea and vomiting but sucralfate and zofran have been helping her a lot. Microbiology Lab Technician Required: No Allergies No Known Allergies Allergy (Verified 12/29/23 08:01) HPI HPI vomiting and nausea: Details: 53-year-old female here for initial evaluation of nausea and vomiting. She is referred by [facility]. P.m. X History of H pylori ulcer GERD Goiter Hypothyroid -Graves disease status post Tapazole treatment Allergic rhinitis with copious PNDS Hx opiate abuse-Suboxone therapy * SURGICAL HISTORY Pt denies * ALLERGIES: NKDA * [facility] LABS: Laboratory Tests 12/16/23 12/16/23 08:15 08:33 WBC 5.4 Hgb 14.5 Hct 41.6 Plt Count 210 Estimated GFR > 60 Total Bilirubin 0.9 AST 29 ALT 34 H Alkaline Phosphatase 49 Lipase 31 TSH 1.02 Free T4 1.02 Free T3 3.3 TODAY'S VISIT She was seen greater than 3 years ago by Flores Stein for the same problem. It that time she had been declining EGDs. Onset 2014 she would start with sudden onset queasiness and she would start vomiting mucus. At times she would lay down with a cool washcloth and it would pass. At times it would last for 4-5 hours, never food just mucus. Initially it would happen about q3mos, but now it is happening more often. Then she had COVID in November and it started once a week. She keeps track of her flairs to try to find patterns. She has noted SMITH may be preceding it and smells such as a breakfast burrito will trigger it. At times she will have burping and a taste of disgusting mucus. She will get very hot when vomiting like a hot flash and she will have to remove layers of clothes. She took omeprazole in the past w/ o any help. She also tried twice a day w/o help as well. She was given sucralfate and zofran in the ER and this has helped her - she has only needed to use it once. She also thinks that heat and sweating may be a trigger, as she has worked jobs that would be in hot environments. (? Vasovagal effects) She had and EGD ? at [facility] and she was told it was gastritis. She has anxiety about having something down my throat but she found the procedure very easy. She has a hx of opiate pill abuse and is on low dose Suboxone. She was on tapazole for Graves Disease but she has come off of it. It is possible that she has some hyperesthesia of the gut due to lack of down regulation from prolonged opiate use. However this still could be treated I needs to be treated says it is affecting her quality of life. She questions if she having a bad reaction Suboxone which I suppose is possible even though this would not be unexpected side effect. We always have to consider idiopathic affects but I hate to vilify this medicine since this is such a good medicine for opioid use disorder. There is not FHX of similar sx. Her father had PUD. No stomach, esophageal or crc. No GB disease. She has severe PNDS. She has never had any food allergy testing. She has never had a colonoscopy. No recent imaging. No CIC or diarrhea am stools. No ETOH, drinks iced coffee 1 a day. No spicy foods. No NSAIDS, asa, iron pills on empty stomach, takes magnesium at night, No GES. She is very worried about HP and we will get stool testing r/t sucralfate. Get records from [facility], we could consider exocrine pancreatic insufficiency and she could be an over bile produce her apart from not having gallbladder issues we are aware of. This also could be metabolic or even migraine driven of course if everything else is ruled out we could consider psychogenic causes. However, I think it be irresponsible to call it that until we have ruled out any other severe pathology. [facility] Medical History (Updated 12/29/23 @ 08:11 by KISHOR Warren) Acid reflux Nausea & vomiting Goiter Vitamin D deficiency Hyperthyroidism Environmental allergies Surgical History History of esophagogastroduodenoscopy (EGD) No history of previous surgery Family History Father History of cancer Mother Hx of breast cancer Social History Household Members: None Alcohol intake: current Alcohol intake frequency: does not drink Patient Tobacco Use Status: Never used Tobacco Substance Use Type: Marijuana Current occupational status: employed Current occupation: [employer] Reports excessive sweating, Denies fatigue, Denies fever(s), Reports headache(s), Denies night sweats, Denies poor appetite, Reports weakness and Denies weight loss ENT Details: Sensitivity to smells triggering nausea Reports Normal hearing present, Denies dental pain, Denies dysphagia, Reports headache(s), Denies hearing loss, Denies mouth pain, Denies odynophagia, Reports disequilibrium, Reports post nasal drip, Reports sinus pressure, Denies throat swelling, Denies tongue swelling and Reports other (Dentition adequate) Card Reports no additional complaints and Reports palpitations Resp Reports no additional complaints GI Details: Reports abdominal pain (only with vomiting), Reports belching, Denies melena, Denies bloating, Denies hematochezia, Denies constipation, Denies GI cramping, Denies dysphagia, Denies excessive flatus, Denies early satiety, Denies heartburn, Denies diarrhea, Reports nausea, Denies odynophagia, Reports vomiting and Denies hematemesis Skin/Breast Denies pruritus, Denies lesions, Denies rash and Denies jaundice Neuro Reports Normal hearing present, Denies Abnormal speech present, Reports headache(s), Reports disequilibrium and Reports weakness Psych Reports anxiety Endo Reports excessive sweating, Denies fatigue, Reports flushing and Reports palpitations Aller/Immun Denies throat swelling and Denies tongue swelling Physical Exam Vital Signs: Last Vital Signs Pulse 67 12/29/23 07:59 BP 117/75 12/29/23 07:59 BMI result Body Mass Index 26.5 Const General: cooperative, no acute distress, well developed, anxious and well groomed Nutritional Appearance: average body habitus and well nourished Orientation/consciousness: oriented to person, oriented to place and oriented to time Limitations: No language barrier HEENT Head: Yes normocephalic and Yes atraumatic Eyes General: appearance normal, both eyes and all related structures Pupils: Equal, round and reactive pupils present Neck Neck: Yes normal visual inspection and Yes no lymphadenopathy Thyroid: Thyroid normal Resp Effort & Inspection: normal respiratory effort and able to speak in complete sentences Auscultation: clear to auscultation bilaterally Cardio Rate: regular rate Rhythm: regular rhythm Heart sounds: Normal, physiologic split S2 sound present Peripheral pulses: radial pulses present and posterior tibial pulses present GI Inspection: No distended and No Abdominal panniculus present Palpation (GI): Soft to palpation, nontender, no guarding, not rigid and No hepatosplenomegaly present Percussion: Yes normal to percussion Auscultation: Hyperactive bowel sounds present Rectal Exam - Female: deferred Skin General skin exam: no rashes or lesions noted, turgor normal, skin not dry, no jaundice, No spider nevi and no striae Rashes: no rashes Nails: normal Neuro General: oriented to person, oriented to place and oriented to time Cranial nerves: Yes Equal, round and reactive pupils present and Yes Normal hearing present Speech: No Abnormal speech present Extrem General: Yes normal to inspection, No clubbing, No cyanosis and No edema Psych Appearance: grossly normal and well kempt Mental Status: mental status grossly normal Speech and movement: Pressured speech present Affect: Animated affect present and Anxious affect present Attitude: cooperative Thought process: not confabulating and Racing thoughts present Thought content: Normal thought content present Insight: Limited insight present (Psych) Judgement: Limited judgement present (Psych) Assessment & Plan Assessment & Plan (1) Nausea & vomiting: Code(s): R11.2 - Nausea with vomiting, unspecified Category: Medical (2) H pylori ulcer: Code(s): K27.9 - Peptic ulcer, site unspecified, unspecified as acute or chronic, without hemorrhage or perforation; B96.81 - Helicobacter pylori [H. pylori] as the cause of diseases classified elsewhere Category: Medical Plan She was seen greater than 3 years ago by Flores Stein for the same problem. It that time she had been declining EGDs. Onset 2014 she would start with sudden onset queasiness and she would start vomiting mucus. At times she would lay down with a cool washcloth and it would pass. At times it would last for 4-5 hours, never food just mucus. Initially it would happen about q3mos, but now it is happening more often. Then she had COVID in November and it started once a week. She keeps track of her flairs to try to find patterns. She has noted SMITH may be preceding it and smells such as a breakfast burrito will trigger it. At times she will have burping and a taste of disgusting mucus. She will get very hot when vomiting like a hot flash and she will have to remove layers of clothes. She took omeprazole in the past w/ o any help. She also tried twice a day w/o help as well. She was given sucralfate and zofran in the ER and this has helped her - she has only needed to use it once. She also thinks that heat and sweating may be a trigger, as she has worked jobs that would be in hot environments. (? Vasovagal effects) She had and EGD ? at [facility] and she was told it was gastritis. She has anxiety about having something down my throat but she found the procedure very easy. She has a hx of opiate pill abuse and is on low dose Suboxone. She was on tapazole for Graves Disease but she has come off of it. It is possible that she has some hyperesthesia of the gut due to lack of down regulation from prolonged opiate use. However this still could be treated I needs to be treated says it is affecting her quality of life. She questions if she having a bad reaction Suboxone which I suppose is possible even though this would not be unexpected side effect. We always have to consider idiopathic affects but I hate to vilify this medicine since this is such a good medicine for opioid use disorder. There is not FHX of similar sx. Her father had PUD. No stomach, esophageal or crc. No GB disease. She has severe PNDS. She has never had any food allergy testing. She has never had a colonoscopy. No recent imaging. No CIC or diarrhea am stools. No ETOH, drinks iced coffee 1 a day. No spicy foods. No NSAIDS, asa, iron pills on empty stomach, takes magnesium at night, No GES. She is very worried about HP and we will get stool testing r/t sucralfate. Get records from [facility], we could consider exocrine pancreatic insufficiency and she could be an over bile produce her apart from not having gallbladder issues we are aware of. This also could be metabolic or even migraine driven of course if everything else is ruled out we could consider psychogenic causes. However, I think it be irresponsible to call it that until we have ruled out any other severe pathology. Return office visit in 5 weeks I will contact her if there are any concerning lab results in the meantime. Apparently she is having some trouble with our patient portal. Orders: Orders Rast Allergen Today R11.2 - Nausea with vomiting, unspecified Transglutaminase IgA Today R11.2 - Nausea with vomiting, unspecified C Reactive Protein Today R11.2 - Nausea with vomiting, unspecified H pylori Ag Stool Today R11.2 - Nausea with vomiting, unspecified Transglutaminase Ab IgG Today R11.2 - Nausea with vomiting, unspecified Calprotectin, Fecal Today R11.2 - Nausea with vomiting, unspecified Medications: Refilled sucralfate (Carafate) 1 g PO BID 60 tabs 6RF R11.2 - Nausea with vomiting, unspecified Coding Level of Care Code New Pt Level 3 (03893) Diagnoses Nausea & vomiting R11.2 H pylori ulcer K27.9; B96.81
== END 2023-12-29 09:03 | disposition home or self-care (01) ==
PROVIDERS: PCP Family Medicine; Visit Provider Nurse Practitioner
DX: R11.2 Nausea with vomiting, unspecified (principal); K27.9 Peptic ulcer, site unspecified, unspecified as acute or chronic, without hemorrhage or perforation; B96.81 Helicobacter pylori [H. pylori] as the cause of diseases classified elsewhere
CPT/HCPCS: 99203

== ENCOUNTER 2023-12-29 09:19 | Outpatient (REF) | payer OTHER, SELFPAY ==
[2023-12-29 10:56] LABS: C Reactive Protein < 0.10 mg/dL (< or = 0.50)
[2023-12-31 20:38] LABS: Transglutaminase Ab IgG <1.0 U/mL; Transglutaminase IgA <1.0 U/mL
== END 2023-12-29 09:20 | disposition home or self-care (01) ==
LOC: HO.10HDL 09:19
PROVIDERS: Visit Provider Nurse Practitioner
DX: R11.2 Nausea with vomiting, unspecified (principal)
CPT/HCPCS: 36415; 86003; 86140; 86364

== ENCOUNTER 2023-12-30 06:55 | Outpatient (REF) | payer OTHER, SELFPAY ==
[2024-01-06 18:58] LABS: Calprotectin, Fecal 10 mcg/g
== END 2023-12-30 06:56 | disposition home or self-care (01) ==
LOC: HO.LNP 06:55
PROVIDERS: PCP Family Medicine; Visit Provider Nurse Practitioner
DX: R11.2 Nausea with vomiting, unspecified (principal); K27.9 Peptic ulcer, site unspecified, unspecified as acute or chronic, without hemorrhage or perforation; B96.81 Helicobacter pylori [H. pylori] as the cause of diseases classified elsewhere
CPT/HCPCS: 83993; 87338; 99202

== ENCOUNTER 2024-02-02 08:59 | Outpatient (AMB) | payer OTHER, SELFPAY ==
--- NOTE | 2024-02-02 09:01 | A.OFFVIS_ITS ---
Vital Signs 02/02/24 09:03 Height 5 ft 6 in Weight 175 lb 7.807 oz BMI 28.3 BP 106/53 L Blood Pressure Location Lt brachial Position Sitting Pulse 61 Intake Visit Reasons: 5 week follow up Intake Note: Agustina presents in the office as a 5 week follow up. CC: She states that she is here to go over results of her last EGD but if results are not in she is willing to have another one done. Allergies No Known Allergies Allergy (Verified 02/02/24 09:03) HPI HPI 5 week follow up: Details: Assessment & Plan (1) Nausea & vomiting: Code(s): R11.2 - Nausea with vomiting, unspecified Category: Medical (2) H pylori ulcer: Code(s): K27.9 - Peptic ulcer, site unspecified, unspecified as acute or chronic, without hemorrhage or perforation; B96.81 - Helicobacter pylori [H. pylori] as the cause of diseases classified elsewhere Category: Medical Plan She was seen greater than 3 years ago by Flores Stein for the same problem. It that time she had been declining EGDs. Onset 2014 she would start with sudden onset queasiness and she would start vomiting mucus. At times she would lay down with a cool washcloth and it would pass. At times it would last for 4-5 hours, never food just mucus. Initially it would happen about q3mos, but now it is happening more often. Then she had COVID in November and it started once a week. She keeps track of her flairs to try to find patterns. She has noted SMITH may be preceding it and smells such as a breakfast burrito will trigger it. At times she will have burping and a taste of disgusting mucus. She will get very hot when vomiting like a hot flash and she will have to remove layers of clothes. She took omeprazole in the past w/ o any help. She also tried twice a day w/o help as well. She was given sucralfate and zofran in the ER and this has helped her - she has only needed to use it once. She also thinks that heat and sweating may be a trigger, as she has worked jobs that would be in hot environments. (? Vasovagal effects) She had and EGD ? at [facility] and she was told it was gastritis. She has anxiety about having something down my throat but she found the procedure very easy. She has a hx of opiate pill abuse and is on low dose Suboxone. She was on tapazole for Graves Disease but she has come off of it. It is possible that she has some hyperesthesia of the gut due to lack of down regulation from prolonged opiate use. However this still could be treated I needs to be treated says it is affecting her quality of life. She questions if she having a bad reaction Suboxone which I suppose is possible even though this would not be unexpected side effect. We always have to consider idiopathic affects but I hate to vilify this medicine since this is such a good medicine for opioid use disorder. There is not FHX of similar sx. Her father had PUD. No stomach, esophageal or crc. No GB disease. She has severe PNDS. She has never had any food allergy testing. She has never had a colonoscopy. No recent imaging. No CIC or diarrhea am stools. No ETOH, drinks iced coffee 1 a day. No spicy foods. No NSAIDS, asa, iron pills on empty stomach, takes magnesium at night, No GES. She is very worried about HP and we will get stool testing r/t sucralfate. Get records from [facility], we could consider exocrine pancreatic insufficiency and she could be an over bile produce her apart from not having gallbladder issues we are aware of. This also could be metabolic or even migraine driven of course if everything else is ruled out we could consider psychogenic causes. However, I think it be irresponsible to call it that until we have ruled out any other severe pathology. Return office visit in 5 weeks I will contact her if there are any concerning lab results in the meantime. Apparently she is having some trouble with our patient portal. Orders: Orders Rast Allergen Today R11.2 - Nausea with vomiting, unspecified Transglutaminase IgA Today R11.2 - Nausea with vomiting, unspecified C Reactive Protein Today R11.2 - Nausea with vomiting, unspecified H pylori Ag Stool Today R11.2 - Nausea with vomiting, unspecified Transglutaminase Ab IgG Today R11.2 - Nausea with vomiting, unspecified Calprotectin, Fecal Today R11.2 - Nausea with vomiting, unspecified Medications: Refilled sucralfate (Carafate) 1 g PO BID 60 tabs 6RF R11.2 - Nausea with vomiting, unspecified Laboratory Tests 12/29/23 12/30/23 09:27 06:55 C-Reactive Protein < 0.10 Stool Calprotectin 10 Stool H. pylori Ag negative Rast only [facility] Laboratory Tests 12/29/23 09:27 Tiss Transglutamin IgG <1.0 Tiss Transglutamin IgA <1.0 TODAYS VISIT She has not been ill since she started the carafate. She is willing to undergo another EGD if needed, report look fairly benign but there was report of some ectopic areas in the stomach and, perhaps, SSBE so I need that biopsy. For now she is happy and we will watch and wait since she has had some cycling of her symptoms within the past 13mos kolby period of time. ROV 6 weeks. [facility] Medical History (Updated 02/17/24 @ 12:09 by KISHOR Warren) H pylori ulcer Nausea & vomiting Goiter Vitamin D deficiency Hyperthyroidism Environmental allergies Surgical History History of esophagogastroduodenoscopy (EGD) No history of previous surgery Family History Father History of cancer Mother Hx of breast cancer Social History Household Members: None Alcohol intake: current Alcohol intake frequency: does not drink Patient Tobacco Use Status: Never used Tobacco Substance Use Type: Marijuana Current occupational status: employed Current occupation: [employer] Denies fatigue, Denies fever(s), Denies night sweats, Denies poor appetite and Denies weight loss ENT Reports Normal hearing present, Denies dental pain, Denies dysphagia, Denies hearing loss, Denies mouth pain, Denies odynophagia, Denies throat swelling, Denies tongue swelling and Reports other (Dentition adequate) Card Reports no additional complaints Resp Reports no additional complaints GI Details: Denies abdominal pain, Denies melena, Denies bloating, Denies hematochezia, Denies constipation, Denies GI cramping, Denies dysphagia, Denies excessive flatus, Denies early satiety, Denies heartburn, Denies diarrhea, Reports nausea, Denies odynophagia, Reports vomiting and Denies hematemesis Skin/Breast Denies pruritus, Denies lesions, Denies rash and Denies jaundice Neuro Reports Normal hearing present and Denies Abnormal speech present Endo Denies fatigue Aller/Immun Denies throat swelling and Denies tongue swelling Physical Exam Vital Signs: Last Vital Signs Pulse 61 02/02/24 09:03 BP 106/53 L 02/02/24 09:03 BMI result Body Mass Index 28.3 Const General: cooperative, no acute distress, well developed and well groomed Nutritional Appearance: average body habitus and well nourished Orientation/consciousness: oriented to person, oriented to place and oriented to time Limitations: No language barrier HEENT Head: Yes normocephalic and Yes atraumatic Eyes General: appearance normal, both eyes and all related structures Pupils: Equal, round and reactive pupils present Neck Neck: Yes normal visual inspection and Yes no lymphadenopathy Thyroid: Thyroid normal Resp Effort & Inspection: normal respiratory effort and able to speak in complete sentences Auscultation: clear to auscultation bilaterally Cardio Rate: regular rate Rhythm: regular rhythm Heart sounds: Normal, physiologic split S2 sound present Peripheral pulses: radial pulses present and posterior tibial pulses present GI Inspection: No distended and No Abdominal panniculus present Palpation (GI): Soft to palpation, nontender, no guarding, not rigid and No hepatosplenomegaly present Percussion: Yes normal to percussion Auscultation: normal bowel sounds Rectal Exam - Female: deferred Skin General skin exam: no rashes or lesions noted, turgor normal, skin not dry, no jaundice, No spider nevi and no striae Rashes: no rashes Nails: normal Neuro General: oriented to person, oriented to place and oriented to time Cranial nerves: Yes Equal, round and reactive pupils present and Yes Normal hearing present Speech: No Abnormal speech present Extrem General: Yes normal to inspection, No clubbing, No cyanosis and No edema Psych Appearance: grossly normal and well kempt Mental Status: mental status grossly normal Speech and movement: Normal speech and movement present Affect: normal affect Attitude: cooperative Thought process: Normal thought process present and not confabulating Thought content: Normal thought content present Insight: Fair insight present (Psych) Judgement: Fair judgement present (Psych) Assessment & Plan Assessment & Plan (1) Nausea & vomiting: Code(s): R11.2 - Nausea with vomiting, unspecified Category: Medical Plan She has not been ill since she started the carafate. She is willing to undergo another EGD if needed, report look fairly benign but there was report of some ectopic areas in the stomach and, perhaps, SSBE so I need that biopsy. For now she is happy and we will watch and wait since she has had some cycling of her symptoms within the past 13mos kolby period of time. ROV 6 weeks. Coding Level of Care Code Est Pt Level 3 (24083) Diagnoses Nausea & vomiting R11.2
[2024-02-02 09:03] VITALS: BP 106/53; PULSE 61; BMI 28.3
== END 2024-02-02 09:38 | disposition home or self-care (01) ==
PROVIDERS: PCP Family Medicine; Visit Provider Nurse Practitioner
DX: R11.2 Nausea with vomiting, unspecified (principal)
CPT/HCPCS: 99213

== ENCOUNTER → 2024-02-02 08:59 | Outpatient (BNVA) | payer OTHER, SELFPAY | PROVIDERS: PCP Family Medicine; Visit Provider Nurse Practitioner | DX: K27.9 Peptic ulcer, site unspecified, unspecified as acute or chronic, without hemorrhage or perforation (principal); R11.2 Nausea with vomiting, unspecified | CPT/HCPCS: 99212 ==

== ENCOUNTER 2024-03-09 06:14 | Outpatient (REF) | payer OTHER, SELFPAY ==
[2024-03-10 07:38] LABS: Follicle Stimulating Hormone 22.1 mIU/mL
== END 2024-03-09 06:15 | disposition home or self-care (01) ==
LOC: HO.HMGCLDS 06:14
PROVIDERS: PCP Family Medicine; Visit Provider Obstetrics & Gynecology
DX: N95.1 Menopausal and female climacteric states (principal)
CPT/HCPCS: 36415; 83001

== ENCOUNTER 2024-03-15 15:55 | Outpatient (AMB) | payer OTHER, SELFPAY ==
--- NOTE | 2024-03-15 16:01 | MHC.OFFVIS ---
Vital Signs 03/15/24 16:02 Height 5 ft 6 in Weight 174 lb 2.643 oz BMI 28.1 BP 108/66 Blood Pressure Location Lt brachial Position Sitting Pulse 74 Intake Visit Reasons: Follow up N/V Intake Note: Patient in office today in follow up of N/V. CC: Patient reports that she is having BLE pain and that she was seen by vascular surgery for a test but was not able to go back for results. Eric reports an episode of vomiting on 03/06 but she believes it was the food she had for lunch. Other than that she states she has been doing well from GI standpoint. [employer] Required: No Accompanied by: Self / Same As Patient Allergies No Known Allergies Allergy (Verified 03/15/24 16:14) HPI HPI Follow up N/V: Details: Assessment & Plan (1) Nausea & vomiting: Code(s): R11.2 - Nausea with vomiting, unspecified Category: Medical Plan She has not been ill since she started the carafate. She is willing to undergo another EGD if needed, report look fairly benign but there was report of some ectopic areas in the stomach and, perhaps, SSBE so I need that biopsy. For now she is happy and we will watch and wait since she has had some cycling of her symptoms within the past 13mos kolby period of time. ROV 6 weeks. BIOPSY REPORT FROM [facility] EGD 03/2022 Gastric antral mucosa with mildly active chronic gastritis, no H pylori organisms. TODAY'S VISIT She continues to do very well, she has only vomited once since I last saw her and it resolved relatively quickly. She thinks it was r/t eating a leftover steak that did not agree with her. ROV 6 mos. PFSH Medical History H pylori ulcer Nausea & vomiting Goiter Vitamin D deficiency Hyperthyroidism Environmental allergies Surgical History History of esophagogastroduodenoscopy (EGD) No history of previous surgery Family History Father History of cancer Mother Hx of breast cancer Social History Household Members: None Alcohol intake: current Alcohol intake frequency: does not drink Patient Tobacco Use Status: Never used Tobacco Substance Use Type: Marijuana Current occupational status: employed Current occupation: [employer] Review of Systems Const Denies fatigue, Denies fever(s), Denies night sweats, Denies poor appetite and Denies weight loss ENT Reports Normal hearing present, Denies dental pain, Denies dysphagia, Denies hearing loss, Denies mouth pain, Denies odynophagia, Denies throat swelling, Denies tongue swelling and Reports other (Dentition adequate) Card Reports no additional complaints Resp Reports no additional complaints GI Details: Denies abdominal pain, Denies melena, Denies bloating, Denies hematochezia, Denies constipation, Denies GI cramping, Denies dysphagia, Denies excessive flatus, Denies early satiety, Denies heartburn, Denies diarrhea, Reports nausea, Denies odynophagia, Reports vomiting and Denies hematemesis Skin/Breast Denies pruritus, Denies lesions, Denies rash and Denies jaundice Neuro Reports Normal hearing present and Denies Abnormal speech present Endo Denies fatigue Aller/Immun Denies throat swelling and Denies tongue swelling Physical Exam Vital Signs: Last Vital Signs Pulse 74 03/15/24 16:02 BP 108/66 03/15/24 16:02 BMI result Body Mass Index 28.1 Const General: cooperative, no acute distress, well developed and well groomed Nutritional Appearance: well nourished and overweight Orientation/consciousness: oriented to person, oriented to place and oriented to time Limitations: No language barrier HEENT Head: Yes normocephalic and Yes atraumatic Eyes General: appearance normal, both eyes and all related structures Pupils: Equal, round and reactive pupils present Neck Neck: Yes normal visual inspection and Yes no lymphadenopathy Thyroid: Thyroid normal Resp Effort & Inspection: normal respiratory effort and able to speak in complete sentences Auscultation: clear to auscultation bilaterally Cardio Rate: regular rate Rhythm: regular rhythm Heart sounds: Normal, physiologic split S2 sound present Peripheral pulses: radial pulses present and posterior tibial pulses present GI Inspection: No distended and No Abdominal panniculus present Palpation (GI): Soft to palpation, nontender, no guarding, not rigid and No hepatosplenomegaly present Percussion: Yes normal to percussion Auscultation: normal bowel sounds Rectal Exam - Female: deferred Skin General skin exam: no rashes or lesions noted, turgor normal, skin not dry, no jaundice, No spider nevi and no striae Rashes: no rashes Nails: normal Neuro General: oriented to person, oriented to place and oriented to time Cranial nerves: Yes Equal, round and reactive pupils present and Yes Normal hearing present Speech: No Abnormal speech present Extrem General: Yes normal to inspection, No clubbing, No cyanosis and No edema Psych Appearance: grossly normal and well kempt Mental Status: mental status grossly normal Speech and movement: Normal speech and movement present Affect: normal affect Attitude: cooperative Thought process: Normal thought process present and not confabulating Thought content: Normal thought content present Insight: Good insight present (Psych) Judgement: Good judgement present (Psych) Assessment & Plan Assessment & Plan (1) Chronic gastritis: Code(s): K29.50 - Unspecified chronic gastritis without bleeding Category: Medical (2) Nausea & vomiting: Code(s): R11.2 - Nausea with vomiting, unspecified Category: Medical Plan She continues to do very well, she has only vomited once since I last saw her and it resolved relatively quickly. She thinks it was r/t eating a leftover steak that did not agree with her. ROV 6 mos. Medications: Refilled sucralfate (Carafate) 1 g PO BID 60 tabs 6RF R11.2 - Nausea with vomiting, unspecified Coding Level of Care Code Est Pt Level 3 (63821) Diagnoses Chronic gastritis K29.50 Nausea & vomiting R11.2
[2024-03-15 16:02] VITALS: BP 108/66; PULSE 74; BMI 28.1
== END 2024-03-15 16:25 | disposition home or self-care (01) ==
PROVIDERS: PCP Family Medicine; Visit Provider Nurse Practitioner
DX: K29.50 Unspecified chronic gastritis without bleeding (principal); R11.2 Nausea with vomiting, unspecified
CPT/HCPCS: 99213

== ENCOUNTER → 2024-03-15 15:55 | Outpatient (BNVA) | payer OTHER, SELFPAY | PROVIDERS: PCP Family Medicine; Visit Provider Nurse Practitioner | DX: K29.50 Unspecified chronic gastritis without bleeding (principal); R11.2 Nausea with vomiting, unspecified | CPT/HCPCS: 99212 ==

== ENCOUNTER 2024-04-08 09:54 | Outpatient (REF) | payer OTHER, SELFPAY ==
--- NOTE | ~2024-04-08 | MM_ITS ---
EXAMINATION: MM SCREENING DIGITAL BREAST TOMOSYNTHESIS, BILATERAL CLINICAL INFORMATION: Screening. Asymptomatic. COMPARISON: Mammography: Comparison is made with available priors TECHNIQUE: Digital breast mammography with tomosynthesis is performed in both the craniocaudal and mediolateral oblique views along with computer-aided detection (CAD). FINDINGS: The breasts are heterogeneously dense, which may obscure small masses (ACR BI-RADS breast composition Category c). There are no significant masses, abnormal calcifications, or other abnormalities. MM/MM tomosynthesis screening BI IMPRESSION: No mammographic evidence of malignancy. ASSESSMENT: BI-RADS BI-RADS 1 - Negative RECOMMENDATION: Routine annual mammography screening. 1 year F/U This examination should not preclude the clinical evaluation of a suspicious palpable abnormality. This patient's information was entered into a reminder system with a target due date for their next mammogram. Electronically signed by: Michelle Butts DO 04/20/2024 11:09 AM EDT
== END 2024-04-08 09:55 | disposition home or self-care (01) ==
LOC: HO.MAMMO 09:54
PROVIDERS: PCP Family Medicine; Visit Provider Family Medicine
DX: Z12.31 Encounter for screening mammogram for malignant neoplasm of breast (principal)
CPT/HCPCS: 77063; 77067

== ENCOUNTER → 2024-04-08 10:00 | Outpatient (BNV) | payer OTHER, SELFPAY | PROVIDERS: PCP Family Medicine; Visit Provider Internal Medicine | DX: Z12.31 Encounter for screening mammogram for malignant neoplasm of breast (principal) | CPT/HCPCS: 77063; 77067 ==

== ENCOUNTER 2024-05-31 13:18 | Emergency (ER) | payer OTHER, SELFPAY ==
--- NOTE | ~2024-05-31 | CT_ITS ---
EXAMINATION: CT ABDOMEN AND PELVIS WITH CONTRAST CLINICAL INFORMATION: Nausea and vomiting. COMPARISON: None available. TECHNIQUE: Multidetector volumetric images were obtained from the superior aspect of the liver through the pubic symphysis following administration 85 mL of Omnipaque 350 intravenous contrast. Sagittal and coronal reformatted images were obtained on the technologist's workstation. Oral contrast: No This CT examination was performed using dose optimization techniques as appropriate, variously including the following: *Automated exposure control *Adjustment of mA and/or kV according to patient size (this includes techniques or standardized protocols for targeted exams where dose is matched to indication/reason for exam; i.e. extremities or head) *Use of iterative reconstruction technique DLP: 574 mGy-cm FINDINGS: LUNG BASES: The visualized lung bases are unremarkable. LIVER, GALLBLADDER, AND BILIARY TREE: The liver is normal in size, shape, and attenuation. No focal hepatic lesion or biliary ductal dilatation is present. The gallbladder is unremarkable with no evidence of radiopaque gallstones, gallbladder wall thickening, or obvious pericholecystic inflammatory changes. PANCREAS: Unremarkable. SPLEEN: Unremarkable. ADRENAL GLANDS: Unremarkable. KIDNEYS AND URETERS: The kidneys are normal in size, shape, and attenuation. No hydronephrosis, hydroureter, or calculi seen. No perinephric stranding. BLADDER: Unremarkable. GASTROINTESTINAL TRACT: There is scattered stool and gas seen throughout the colon without distention. The small bowel loops are normal caliber. The stomach is distended with fluid. No free air or free fluid seen. ABDOMINAL WALL: No significant hernia is appreciated. LYMPH NODES: Normal. VASCULAR: Unremarkable. PELVIC VISCERA: The uterus is retroverted with fundal enlargement likely from a large mass/fibroid. It at least measures 4.7 x 4.7 cm. No adnexal mass seen. There is minimal free fluid in the cul-de-sac. No abnormal pelvic or inguinal lymph nodes seen. OSSEOUS STRUCTURES: No aggressive lytic or sclerotic process seen. Mild degenerative disc changes L4-[address]/CT abdomen pelvis w IV con IMPRESSION: 1. No acute intra-abdominal process seen. 2. Mild constipation. 3. Retroverted uterus with fundal enlargement likely from a large fibroid. Recommend pelvic ultrasound. Fleischner guidelines were followed. Electronically signed by: Gildardo Menchaca MD 05/31/2024 05:36 PM [facility]
[2024-05-31 13:32] VITALS: BP 137/83; PULSE 95; RESP 16; TEMP 37; O2SAT 98; BMI 27.8
--- NOTE | 2024-05-31 13:38 | ED.GENADULT ---
HPI - General Adult General Chief complaint: Nausea/Vomiting/Diarrhea Stated complaint: Stomach Pain Vomiting Time Seen by Provider: 05/31/24 16:17 Source: patient History of Present Illness ED Provider: Prerna SORIANO narrative: 53-year-old female with past medical history of gastritis presenting for nausea and vomiting. Patient states that she received and Ozempic shot Wednesday morning and Wednesday she began experiencing nausea and vomiting. She denies abdominal pain however her nausea and vomiting has persisted for the last 3 days. She describes as nonbloody nonbilious emesis and inability to tolerate solids however she has been able to tolerate water over the past day. This was the 1st time she had received Ozempic. Related Data Home Medications ?Medication ?Instructions ?Recorded ?Confirmed buprenorphine 2 mg-naloxone 0.5 mg 1 film buccal DAILY 05/22/20 10/27/23 sublingual film (Suboxone) fluticasone propionate 50 spray intranasal 07/25/20 10/27/23 mcg/actuation nasal spray,suspension fluoxetine 10 mg capsule (Prozac) 10 mg PO DAILY 11/26/20 10/27/23 black cohosh 200 mg capsule 200 mg PO DAILY 12/29/23 turmeric 400 mg capsule mg PO 12/29/23 vitamin B complex 1 cap PO DAILY 03/15/24 Previous Rx's ?Medication ?Instructions ?Recorded ondansetron 4 mg disintegrating 4 mg PO Q8H PRN nausea and 12/16/23 tablet vomiting #7 tabs sucralfate 1 gram tablet (Carafate) 1 g PO BID #60 tabs 03/15/24 famotidine 20 mg tablet (Pepcid) 20 mg PO DAILY #14 tabs 05/31/24 ondansetron 4 mg disintegrating 4 mg PO Q8H PRN nausea and 05/31/24 tablet vomiting #10 tabs Allergies Allergy/AdvReac Type Severity Reaction Status Date / Time No Known Allergies Allergy Verified 05/31/24 13:36 Review of Systems Review of Systems: Patient endorses nausea and vomiting Patient denies abdominal pain, chest pain, shortness of breath, fevers, chills, symptoms, diarrhea Yes all other systems are reviewed and are negative REPLACED BY [facility] Past Medical History Attestation statement: The following information was validated with the patient. REPLACED BY [facility] Narrative: Gastritis Source: old records reviewed Medical History H pylori ulcer Nausea & vomiting Goiter Vitamin D deficiency Hyperthyroidism Environmental allergies Surgical History History of esophagogastroduodenoscopy (EGD) No history of previous surgery Family History Family History Father History of cancer Mother Hx of breast cancer Social History Social History Household Members: None Alcohol intake: former Patient Tobacco Use Status: Never used Tobacco Smoked in Last 30 Days: No Use of substances other than those prescribed or required for medical reasons: No Substance Use Type: Marijuana Advance Directives: No Advance Directives Information Provided: Yes Current occupational status: employed Current occupation: [employer] Physical Exam ED Vital Signs: Vital Signs - 24 hr 05/31/24 13:32 05/31/24 18:21 Temperature 98.6 F 98.7 F Pulse Rate 95 88 Respiratory Rate 16 18 Blood Pressure 137/83 140/78 H Pulse Oximetry 98 98 Oxygen Delivery Method Room Air Room Air BMI result Body Mass Index 27.8 Well-appearing female in no acute distress Lungs clear to auscultation bilaterally; normal S1-S2 regular rate and rhythm Abdomen is soft nontender nondistended Moist mucous membranes Course Course Course Narrative: RME: 53 yold female with pmh of GERD presents to the ED for mutiltple episodes of vomitting that was green without any abdominal pain after having Ozempic shot. Abdominal exam is benign. Labs ordered. Medications Administered Discontinued Medications Generic Name Dose Route Start Last Admin Trade Name Freq PRN Reason Stop Dose Admin Al Hydroxide/Mg Hydroxide 15 ml 05/31/24 17:08 05/31/24 17:34 Magnesium Hydrox/Alum Hydrox 30 Ml Oral.Susp PO 05/31/24 17:09 15 ml ONCE ONE Administration Famotidine 20 mg 05/31/24 17:08 05/31/24 17:35 Famotidine/Pf 20 Mg/2 Ml Vial IVPUSH 05/31/24 17:09 20 mg ONCE ONE Administration Iohexol 100 ml 05/31/24 17:02 05/31/24 17:02 Iohexol 350 Mg/Ml 100 Ml Infus..Btl IV 05/31/24 17:03 85 ml ONCE ONE Administration Ondansetron HCl 4 mg 05/31/24 13:37 05/31/24 13:39 Ondansetron Odt 4 Mg Tab.Rapdis TRANSLINGU 05/31/24 13:38 4 mg ONCE ONE Administration Medical Decision Making Medical Decision Making [facility] Narrative: This is a 53-year-old female presenting for nausea and vomiting after receiving Ozempic. I am concerned for the following; medication reaction, biliary disease, pancreatitis, gastroenteritis, food-borne illness I have no concern for cholecystitis, appendicitis, SBO, surgical abdomen -labs notable for stable H&H, no white count, electrolytes within normal limits, stable creatinine, elevated T bili with normal LFTs, negative hCG, negative troponin -CT abd pelvis ordered -I reviewed the patient's EKG and do not see any overt signs of ischemia -I reviewed the patient's CT scan did not appreciate bowel obstruction or biliary duct dilatation; radiology impression is negative for acute intra-abdominal pressure -on reassessment patient is tolerating fluids and states she has not had any episodes of emesis in the department; she feels comfortable going home and like to be discharged -I sent a script for Pepcid and Zofran to her pharmacy and gave her return precautions follow up instructions Lab Data 05/31/24 14:12 05/31/24 14:12 Labs: Lab Results 05/31/24 05/31/24 05/31/24 Range/Units 14:12 14:13 18:23 WBC 8.3 (4.8-10.8) X10*3/uL RBC 4.68 (4.20-5.50) X10*6/uL Hgb 15.1 (12.0-16.0) g/dl Hct 42.5 (37.0-47.0) % MCV 90.8 (80.0-98.0) fL MCH 32.3 (27.0-33.0) pg MCHC 35.5 H (31.0-35.0) g/dl RDW 12.1 (11.0-16.0) % Plt Count 288 D (160-400) X10*3/uL MPV 10.6 (9.4-12.3) fL Immature Gran % (Auto) 0.4 (0.0-0.4) % Neut % (Auto) 76.8 H (45-73) % Lymph % (Auto) 16.3 L (20-40) % [place] % (Auto) 6.0 (2-11) % Eos % (Auto) 0.1 (0-4) % Baso % (Auto) 0.4 (0-2) % Lymph # (Auto) 1.4 (1.2-4.9) X10*3/uL [place] # (Auto) 0.5 (0.1-1.2) X10*3/uL Eos # (Auto) 0.0 (0.0-0.4) X10*3/uL Baso # (Auto) 0.0 (0.0-0.2) X10*3/uL Abs Immat Gran (auto) 0.03 (0.00-0.03) X10*3/uL Absolute Neuts (auto) 6.4 (2.0-8.3) x10*3/uL Absolute Nucleated RBC 0.000 (0.0-0.012) X10*3/uL Nucleated RBC % (auto) 0.0 (0.0-0.2) /100WBC PT 11.6 (10.9-12.4) SEC INR 1.0 (0.9-1.1) APTT 27.2 (26.0-36.8) SEC Sodium 139 (135-145) mmol/L Potassium 3.8 (3.3-5.1) mmol/L Chloride 101 (96-108) mmol/L Carbon Dioxide 25 (22-29) mmol/L Anion Gap 17 (12-20) BUN 12 (9-16) mg/dL Creatinine 0.74 (0.5-1.4) mg/dL Estim Creat Clear Calc 88.6 Estimated GFR > 60 Random Glucose 90 (60-115) mg/dL Calcium 9.8 (8.4-10.2) mg/dL Total Bilirubin 2.0 H (0.0-1.0) mg/dL AST 23 (5-31) U/L ALT 18 (0-31) U/L Alkaline Phosphatase 57 (39-117) U/L Troponin I High Sens < 2.7 (<3.5-17.0) ng/L Total Protein 7.6 (6.5-8.0) g/dL Albumin 4.4 (3.5-5.0) g/dL Lipase 27 (8-78) U/L Beta HCG, Quant < 2 mIU/mL Urine Color Yellow Urine Appearance Clear Urine pH 6.0 (5.0-9.0) Ur Specific [place] >= 1.030 H (1.005-1.025) Urine Protein 30 (1+) H (Neg-Trace) mg/dL Urine Glucose (UA) Negative (Negative) mg/dL Urine Ketones 80 (Negative) mg/dL Urine Blood Negative (Negative) Urine Nitrite Negative (Negative) Ur Leukocyte Esterase Negative (Negative) Urine RBC 0-2 (0-2) /HPF Urine WBC 0-5 (0-5) /HPF Ur Squamous Epith Cells 0-2 (0-2) /HPF Urine Bacteria None Seen (None Seen) Hyaline Casts 0-2 (0-2) /LPF Urine Test NEGATIVE (NEGATIVE) Influenza Type A (PCR) NEGATIVE (Negative) Influenza Type B (PCR) NEGATIVE (Negative) RSV RNA Qual (PCR) NEGATIVE (Negative) SARS-CoV-2 RNA (RT-PCR) NEGATIVE (Negative) Discharge Plan Discharge Clinical Impression: Nausea & vomiting Qualifiers: Vomiting type: unspecified Qualified Code(s): R11.2 - Nausea with vomiting, unspecified Patient Disposition: Home, Self-Care Additional Instructions: Please 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 Please follow up with your outpatient providers in the next 24-48 hours for re-evaluation. If you develop any new or worsening symptoms please return to the emergency department Prescriptions: New ondansetron 4 mg tablet,disintegrating 4 mg PO Q8H PRN (Reason: nausea and vomiting) Qty: 10 0RF famotidine [Pepcid] 20 mg tablet 20 mg PO DAILY Qty: 14 0RF No Action ondansetron 4 mg tablet,disintegrating 4 mg PO Q8H PRN (Reason: nausea and vomiting) Qty: 7 0RF fluticasone propionate 50 mcg/actuation spray,suspension intranasal fluoxetine [Prozac] 10 mg capsule 10 mg PO DAILY buprenorphine-naloxone [Suboxone] 2-0.5 mg film 1 film buccal DAILY Rx Instructions: place 1 strip/tab under (each) side of tongue turmeric 400 mg capsule PO black cohosh 200 mg capsule 200 mg PO DAILY vitamin B complex Capsule 1 cap PO DAILY sucralfate [Carafate] 1 gram tablet 1 g PO BID Qty: 60 6RF Stand Alone Forms: Work/School Release Print Language: Spanish
[2024-05-31] MEDS: Ondansetron ODT 4 MG TAB.RAPDIS TRANSLINGU (13:39)
--- NOTE | 2024-05-31 13:40 | ECG_ITS ---
Test Reason : n/v Blood Pressure : / mmHG Vent. Rate : 086 BPM Atrial Rate : 086 BPM P-R Int : 132 ms QRS Dur : 084 ms QT Int : 378 ms P-R-T Axes : 034 067 047 degrees QTc Int : 452 ms Normal sinus rhythm with sinus arrhythmia Normal ECG No previous ECGs available Referred By: Yemi Thomas Electronically Signed By:Mohit Sutherland
[2024-05-31 14:21] LABS: MANUAL DIFF FLAG NO
[2024-05-31 14:28] LABS: Basophils Percent Auto 0.4 % (0-2); Eosinophils Percent Auto 0.1 % (0-4); Hematocrit 42.5 % (37.0-47.0); Hemoglobin 15.1 g/dl (12.0-16.0); Imm Gran Abs Auto 0.03 X10*3/uL (0.00-0.03); Imm Gran Pct Auto 0.4 % (0.0-0.4); Lymphocytes Absolute Auto 1.4 X10*3/uL (1.2-4.9); Lymphocytes Percent Auto 16.3 % (20-40); Mean Corpuscular HGB Conc 35.5 g/dl (31.0-35.0); Mean Corpuscular Hemoglobin 32.3 pg (27.0-33.0); Mean Corpuscular Volume 90.8 fL (80.0-98.0); Mean Platelet Volume 10.6 fL (9.4-12.3); Monocytes Absolute Auto 0.5 X10*3/uL (0.1-1.2); Neutrophils Absolute Auto 6.4 x10*3/uL (2.0-8.3); Neutrophils Percent Auto 76.8 % (45-73); Platelet Count 288 X10*3/uL (160-400); Red Blood Count 4.68 X10*6/uL (4.20-5.50); Red Cell Distribution Width 12.1 % (11.0-16.0); White Blood Count 8.3 X10*3/uL (4.8-10.8)
[2024-05-31 14:31] LABS: Prothrombin Time 11.6 SEC (10.9-12.4)
[2024-05-31 14:34] LABS: Partial Thromboplastin Time 27.2 SEC (26.0-36.8)
[2024-05-31 14:39] LABS: Alanine Aminotransferase 18 U/L (0-31); Albumin Level 4.4 g/dL (3.5-5.0); Alkaline Phosphatase 57 U/L (39-117); Anion Gap 17 (12-20); Aspartate Amino Transferase 23 U/L (5-31); Blood Urea Nitrogen 12 mg/dL (9-16); Calcium 9.8 mg/dL (8.4-10.2); Carbon Dioxide 25 mmol/L (22-29); Chloride 101 mmol/L (96-108); Creatinine Clr Calc Pharmacy 88.6; Estimated Glomerular Filt Rate > 60; Glucose Random 90 mg/dL (60-115); Lipase 27 U/L (8-78); Potassium 3.8 mmol/L (3.3-5.1); Sodium 139 mmol/L (135-145); Total Protein 7.6 g/dL (6.5-8.0)
[2024-05-31 14:46] LABS: HCG Quantitative < 2 mIU/mL; Troponin-I High Sensitivity < 2.7 ng/L (<3.5-17.0)
[2024-05-31 15:19] LABS: Influenza A PCR NEGATIVE (Negative); Influenza B PCR NEGATIVE (Negative); Resp Syncy Virus RNA Qual PCR NEGATIVE (Negative); SARS COV2 PCR INHOUSE NEGATIVE (Negative)
[2024-05-31] MEDS: iohexoL 350 MG/ML 100 ML INFUS..BTL IV (17:02)
[2024-05-31] MEDS: Magnesium Hydrox/Alum Hydrox 30 ML ORAL.SUSP 15 ML PO (17:34)
[2024-05-31] MEDS: Famotidine/PF 20 MG/2 ML VIAL IVPUSH (17:35)
[2024-05-31 18:21] VITALS: BP 140/78; PULSE 88; RESP 18; TEMP 37.1; O2SAT 98
[2024-05-31 18:34] LABS: Appearance Urine Clear; Color Urine Yellow; Glucose Urine UA Negative (Negative); Leukocyte Esterase Urine Negative (Negative); Nitrite Urine Negative (Negative); Specific Gravity - Urine >= 1.030 (1.005-1.025); UMIC TRIGGER UACC YES; UPreg QC Valid YES; Urine Blood Negative (Negative); Urine Ketones 80 mg/dL (Negative); Urine Pregnancy NEGATIVE (NEGATIVE); Urine Protein 30 (1+) mg/dL (Neg-Trace)
[2024-05-31 18:43] LABS: Bacteria Urine None Seen (None Seen); Hyaline Casts Urine 0-2 /LPF (0-2); RBC Urine 0-2 /HPF (0-2); Squamous Epithelial Cell Urine 0-2 /HPF (0-2); WBC Urine 0-5 /HPF (0-5)
== END 2024-05-31 20:00 | disposition home or self-care (01) ==
PROVIDERS: Physician Assistant; Emergency Provider Student in an Organized Health Care Education/Training Program; PCP Family Medicine
DX: R11.2 Nausea with vomiting, unspecified (principal); I49.8 Other specified cardiac arrhythmias; R10.2 Pelvic and perineal pain; Z79.899 Other long term (current) drug therapy; Z03.818 Encounter for observation for suspected exposure to other biological agents ruled out
CPT/HCPCS: 0241U; 36415; 74177; 80053; 81001; 81025; 83690; 84484; 84702; 85025; 85610; 85730; 93005; 96374; 99284; Q9967

== ENCOUNTER → 2024-05-31 13:40 | Outpatient (BNV) | payer OTHER, SELFPAY | PROVIDERS: Emergency Provider Student in an Organized Health Care Education/Training Program; PCP Family Medicine; Visit Provider Internal Medicine Cardiovascular Disease | DX: R11.2 Nausea with vomiting, unspecified (principal) | CPT/HCPCS: 93010 ==

== ENCOUNTER 2024-11-07 07:19 | Day surgery (SDC) | payer OTHER, SELFPAY ==
[2024-11-02 11:51] VITALS: BMI 28.1
--- NOTE | 2024-11-03 08:39 | P.CONAN_ITS ---
Documented by User: Marci Arrington NP 11/03/24 08:44 HPI - Anesthesia Eval Consult details Narrative: 54yo F for Upper Endoscopy Suboxone daily PMFSH Active Problems Active Problems: All Active Problems Chronic gastritis (Acute) Varicose veins of right lower extremity with inflammation (Acute) Right hip pain (Acute) Nausea & vomiting (Acute) Goiter (Acute) Vitamin D deficiency (Acute) Hyperthyroidism (Acute) Environmental allergies (Acute) Past Medical History Medical History (Updated 07/27/24 @ 10:50 by KISHOR Warren) COVID-19 H pylori ulcer Nausea & vomiting Goiter Vitamin D deficiency Hyperthyroidism Environmental allergies Family History Family History Father History of cancer Mother Hx of breast cancer Surgical History Surgical History History of esophagogastroduodenoscopy (EGD) No history of previous surgery Social History Social History Household Members: None Are you a primary home care companion to a significant other at home: No Do you presently have visiting nurse or other home services: No Alcohol intake: former Patient Tobacco Use Status: Former Tobacco user Tobacco use type: Cigarette Smoked in Last 30 Days: No Use of substances other than those prescribed or required for medical reasons: Yes Substance Use Type: Marijuana Substance Use Frequency: Daily Have you been hit, kicked, punched, or otherwise hurt by someone within the past year? If so, by whom?: No Are you DNR?: No Advance Directives: No Advance Directives Information Provided: No Advance Directives on File: No Patient : No : No Current occupational status: employed Current occupation: [employer] Allergies Allergy/AdvReac Type Severity Reaction Status Date / Time No Known Allergies Allergy Verified 11/07/24 07:28 Home Medications ?Medication ?Instructions ?Recorded ?Confirmed ?Last Taken ?Type buprenorphine 2 mg-naloxone 0.5 mg 1 film buccal DAILY 05/22/20 11/07/24 11/07/24 History sublingual film (Suboxone) fluticasone propionate 50 1 spray intranasal DAILY 07/25/20 11/07/24 Unknown History mcg/actuation nasal spray,suspension fluoxetine 10 mg capsule (Prozac) 10 mg PO DAILY 11/26/20 11/07/24 Unknown History black cohosh 200 mg capsule 200 mg PO DAILY 12/29/23 11/07/24 Unknown History turmeric 400 mg capsule 400 mg PO DAILY 12/29/23 11/07/24 10/24/24 History vitamin B complex 1 cap PO DAILY 03/15/24 11/07/24 Unknown History Exam Height,Weight and Vital Signs: Height 5 ft 6 in Weight 78.925 kg Narrative Narrative: EKG 2023 Vent. Rate : 086 BPM Atrial Rate : 086 BPM P-R Int : 132 ms QRS Dur : 084 ms QT Int : 378 ms P-R-T Axes : 034 067 047 degrees QTc Int : 452 ms Normal sinus rhythm with sinus arrhythmia Normal ECG No previous ECGs available Assessment and Plan Assessment Anesthesia Assessment: Chart Reviewed Documented by User: Melecio Chi MD 11/07/24 09:00 [facility] Past Medical History Medical History (Updated 07/27/24 @ 10:50 by KISHOR Warren) COVID-19 H pylori ulcer Nausea & vomiting Goiter Vitamin D deficiency Hyperthyroidism Environmental allergies Family History Family History Father History of cancer Mother Hx of breast cancer Family history of problems with anesthesia: No Surgical History Surgical History History of esophagogastroduodenoscopy (EGD) No history of previous surgery History of Problems with Anesthesia: No Social History Social History Household Members: None Are you a primary home care companion to a significant other at home: No Do you presently have visiting nurse or other home services: No Alcohol intake: former Patient Tobacco Use Status: Former Tobacco user Tobacco use type: Cigarette Smoked in Last 30 Days: No Use of substances other than those prescribed or required for medical reasons: Yes Substance Use Type: Marijuana Substance Use Frequency: Daily Have you been hit, kicked, punched, or otherwise hurt by someone within the past year? If so, by whom?: No Are you DNR?: No Advance Directives: No Advance Directives Information Provided: No Advance Directives on File: No Patient : No : No Current occupational status: employed Current occupation: [employer] Allergies Allergy/AdvReac Type Severity Reaction Status Date / Time No Known Allergies Allergy Verified 11/07/24 07:28 Home Medications ?Medication ?Instructions ?Recorded ?Confirmed ?Last Taken ?Type buprenorphine 2 mg-naloxone 0.5 mg 1 film buccal DAILY 05/22/20 11/07/24 11/07/24 History sublingual film (Suboxone) fluticasone propionate 50 1 spray intranasal DAILY 07/25/20 11/07/24 Unknown History mcg/actuation nasal spray,suspension fluoxetine 10 mg capsule (Prozac) 10 mg PO DAILY 11/26/20 11/07/24 Unknown History black cohosh 200 mg capsule 200 mg PO DAILY 12/29/23 11/07/24 Unknown History turmeric 400 mg capsule 400 mg PO DAILY 12/29/23 11/07/24 10/24/24 History vitamin B complex 1 cap PO DAILY 03/15/24 11/07/24 Unknown History Exam Airway Mallampati Class: II TM Dist: >3cm Neck ROM: Full Partial: Upper Assessment and Plan Assessment Anesthesia Assessment: Anesthesia Plan Discussed Final Anesthetic Review Family History of Problems with Anesthesia: No History of Problems with Anesthesia: No NPO: Yes ASA Class: II Final Preanesthetic Review: No Changes in Pt Med Stat, Meds/Allgs Chart Reviewed, Consent Obtained/Reviewed and Anes Risks/Benef Reviewed Patient Risk: Low Procedure Risk: Low Anesthetic Plan Anesthetic Plan: MAC: Disposition: Standard PACU
--- NOTE | 2024-11-06 21:26 | MHC.SHP ---
Pre-Procedural Eval Section A - 24 Hr Update-Section A only Date of Service: 11/07/24 Section B - Complete if H&P > 30 days Chief Complaint: Epigastric pain, ?barretts Details of Present Illness: H pylori ulcer Nausea & vomiting Goiter Vitamin D deficiency Hyperthyroidism Environmental allergies Allergies: Allergies Allergy/AdvReac Type Severity Reaction Status Date / Time No Known Allergies Allergy Verified 05/31/24 13:36 Review of Systems Review of Systems Comment: Ten point ROS negative Exam Exam Comment: Gen appear: No acute distress HEENT: no icterus Chest: No overt resp distress Abd: soft, nontender, nondistended Psych: Stable affect, answering questions appropriately Neuro: A/Ox3 noted to move all extremities spontaneously Ext: no peripheral edema Plan Diagnosis/Plan: Unchanged I have reviewed the history and physical and performed a pertinent physical examination on my patient. No changes have occurred unless specified. Time Spent With Patient Time: Total time managing care of this patient today ____ minutes.
[2024-11-07 07:33] VITALS: BP 118/62; PULSE 78; RESP 16; TEMP 36.4; O2SAT 100; BMI 28.0
[2024-11-07] MEDS: Lactated Ringers 1,000 ML 100 ML IVCONT (07:46)
--- NOTE | 2024-11-07 08:09 | P.OP_ITS ---
Operative Note Operative Note Date of Service: 11/07/24 Narrative: Procedure: Esophagogastroduodenoscopy Endoscopist: Cheryl Vazquez MD Indication: Epigastric pain, N,V Anesthesia Provider: Dr Melecio Chi Anesthesia Type: MAC ?? EGD Procedure:?? The procedure, indications, preparation and potential complications were re viewed with the patient, who indicated understanding and gave written informed consent to proceed. A physical exam was performed. The endoscope was introduced through the mouth, and advanced to the second part of duodenum. The mucosa was carefully examined on slow withdrawal of the endoscope. The patient tolerated the procedure well. There were no immediate complications.? ? EGD Findings:? * Esophagus:? Normal mucosa noted in the entire esophagus. The Z line was at 37 and irregular < 1cm however due to previous report of possible short-segment Gillespie's, cold forceps biopsies were taken. There was a small hiatal hernia with the diaphragmatic hiatus at 40 cm. * Stomach:? Normal mucosa was noted in the stomach. Retroflexion was performed in the cardia that showed Hill grade 2 hiatal hernia. Cold forceps biopsies were taken for gastric mapping as per [facility] protocol. * Duodenum:? Normal mucosa was noted in the whole of the examined duodenum. Cold forceps biopsies were taken from duodenal bulb and second portion of the duodenum to rule out celiac sprue. ? EGD Impressions:? * Normal esophagus (biopsy) * Hiatal hernia * Normal stomach (biopsy) * Normal duodenum (biopsy) ?? Recommendations:?? * Follow biopsy results. Our office will call or send a letter with results within 7-10 days. * If H pylori +, patient will be prescribed eradication therapy followed by test of cure. * Avoid NSAIDs. * Pt reports previous hx of opiate use disorder, now sober x years. Recommend outpatient hepatitis serologies. Above has been reviewed with the patient.
[2024-11-07 08:13] VITALS: BP 97/44; PULSE 66; RESP 14; TEMP 36.3; O2SAT 99
[2024-11-07 08:28] VITALS: BP 116/62; PULSE 69; RESP 16; TEMP 36.3; O2SAT 100
== END 2024-11-07 09:10 | disposition home or self-care (01) ==
PROVIDERS: Visit Provider Internal Medicine
PROC: 0DJ08ZZ Inspection of Upper Intestinal Tract, Via Natural or Artificial Opening Endoscopic (ICD-10-PCS; CPT 43235; principal; 2024-11-07 08:30)
DX: R10.13 Epigastric pain (principal); R11.2 Nausea with vomiting, unspecified; K29.50 Unspecified chronic gastritis without bleeding; K31.7 Polyp of stomach and duodenum; K44.9 Diaphragmatic hernia without obstruction or gangrene; Z87.11 Personal history of peptic ulcer disease; F11.11 Opioid abuse, in remission; Z79.891 Long term (current) use of opiate analgesic; E05.90 Thyrotoxicosis, unspecified without thyrotoxic crisis or storm; E04.9 Nontoxic goiter, unspecified; E55.9 Vitamin D deficiency, unspecified; J30.2 Other seasonal allergic rhinitis; Z79.899 Other long term (current) drug therapy
CPT/HCPCS: 43239; 88305; 88313; 88342; J2003; J2704

== ENCOUNTER → 2024-11-07 07:19 | Outpatient (BNV) | payer OTHER, SELFPAY | PROVIDERS: Visit Provider Internal Medicine | DX: R10.13 Epigastric pain (principal); R11.2 Nausea with vomiting, unspecified | CPT/HCPCS: 43239 ==

== ENCOUNTER 2024-12-21 16:11 | Outpatient (AMB) | payer OTHER, SELFPAY ==
--- NOTE | 2024-12-21 16:19 | MHC.OFFVIS ---
Vital Signs 12/21/24 16:35 Height 5 ft 6 in Weight 169 lb BMI 27.3 BP 112/52 L Blood Pressure Location Lt brachial Position Sitting Pulse 68 Pulse Source Pulse Oximeter Pulse Oximetry (%) 98 Oxygen Delivery Method Room Air Intake Visit Reasons: N+V, discuss disability questions. CL add on. Intake Note: Established patient for mgmt of chronic N+V. CC; C.O. multiple N+V episodes over the last few months. Pt also reports new onset of full body, neuro pain and flushing which is associated with these episodes. Pt states that she will experience a shocking sensation throughout her whole body when she experiences these episodes and feels hyperthermic. Pt has not verified by taking their temperature. Pt would also like to review results of most recent EGD. Top Frame Maker Required: No Accompanied by: Self / Same As Patient Allergies No Known Allergies Allergy (Verified 12/21/24 16:20) HPI HPI N+V, discuss disability questions. CL add on.: Details: Assessment & Plan (1) Chronic gastritis: Code(s): K29.50 - Unspecified chronic gastritis without bleeding Category: Medical (2) Nausea & vomiting: Code(s): R11.2 - Nausea with vomiting, unspecified Category: Medical Plan She continues to do very well, she has only vomited once since I last saw her and it resolved relatively quickly. She thinks it was r/t eating a leftover steak that did not agree with her. ROV 6 mos. Medications: Refilled sucralfate (Carafate) 1 g PO BID 60 tabs 6RF R11.2 - Nausea with vomiting, unspecified CORRESPONDENCE On 11/16/24 @ 08:57 Agustina Stephens (Regarding Self / Same As Patient) Wrote To Quinonez Of course I?m still taking the SUCC.. twice a day and it?s only 1 mg per dose .. then let?s make an appt I know she is barely in the office but i?ve missed so mush time at work from being sick it has to be either 1st appt of day or the last!! preferably the last appt of the day. thanks, Agustina LEO this isn?t a sudden thing i?ve been going through this for years!!! On 11/16/24 @ 08:53 Nena Acuña Wrote To Agustina Stephens Hi Agustina, So given that this is sudden change after EGD, October will have to see in office to evaluate and further discuss. Are you taking the Sucralfate? On 11/16/24 @ 07:59 Agustina Stephens (Regarding Self / Same As Patient) Wrote To CristianoAida Hi October.. I got my results back.. I?m ready for our Plan B I I don?t know what else to do!! i was sick day after endoscopy and home from work. It happened again yesterday i had to leave work again. I cannot keep doing this. I feel like I should apply for intermittent disability to protect my job. Can you help me with that? or someone? Feel free to call me. [phone] i?m ok w that instead of going thru this portal TODAY'S VISIT (today she has had an unremarkable CAT scan 05/2024, an unremarkable EGD, an unremarkable barium swallow with no GERD or hiatal hernia in 2021, negative fecal calprotectin, negative H pylori testing, negative celiac panel, the only food allergy uncovered worse Lizz nuts, but she does have a history of opiate use disorder which could be causing gut hyperesthesia, she feels that it may be triggered by heat and sweating, certain smells, and headaches) Her vomiting seems to have return. She really can not give me any reasons why it seemed to come back so suddenly except she does admit she was under more stress. This makes me wonder if the sucralfate was really the solution that we thought it was or whether she was just in a law in terms of her episodic recurring exacerbating and remitting nausea and vomiting. We really done a thorough GI workup so I am beginning to think that this is not of GI origin. I educated her that the possibilities do include things like neurologic metabolic or even psychogenic causes. To be completely thorough we will get a HIDA scan, a lipase to check for possible pancreatitis (although she does not seem to have severe abdominal pain that would go if this), and a general Chem panel. Since she has no response with Zofran (also quite odd) I will try her on Reglan to see if this gives her some quality of life. I encouraged her to continue to try to follow this up with her primary care provider so that other specialists can be involved in trying to get to the root of the problem. She already has an appointment booked for me on 01/11 and we will keep that appointment. [facility] Medical History Chronic gastritis COVID-19 H pylori ulcer Nausea & vomiting Goiter Vitamin D deficiency Hyperthyroidism Environmental allergies Surgical History History of esophagogastroduodenoscopy (EGD) No history of previous surgery Family History Father History of cancer Mother Hx of breast cancer Social History Household Members: None Are you a primary career technical education instructor to a significant other at home: No Do you presently have visiting nurse or other home services: No Alcohol intake: former Patient Tobacco Use Status: Former Tobacco user Tobacco use type: Cigarette Substance Use Type: Marijuana Current occupational status: employed Current occupation: [email or web address] Const Denies fatigue, Denies fever(s), Denies night sweats, Denies poor appetite and Denies weight loss ENT Reports Normal hearing present, Denies dental pain, Denies dysphagia, Denies hearing loss, Denies mouth pain, Denies odynophagia, Denies throat swelling, Denies tongue swelling and Reports other (Dentition adequate) Card Reports no additional complaints Resp Reports no additional complaints GI Details: Denies abdominal pain, Denies melena, Denies bloating, Denies hematochezia, Denies constipation, Denies GI cramping, Denies dysphagia, Denies excessive flatus, Denies early satiety, Denies heartburn, Denies diarrhea, Reports nausea, Denies odynophagia, Reports vomiting and Denies hematemesis Skin/Breast Denies pruritus, Denies lesions, Denies rash and Denies jaundice Neuro Reports Normal hearing present and Denies Abnormal speech present Endo Denies fatigue Aller/Immun Denies throat swelling and Denies tongue swelling Physical Exam Vital Signs: Last Vital Signs Pulse 68 12/21/24 16:35 BP 112/52 L 12/21/24 16:35 Pulse Ox 98 12/21/24 16:35 Oxygen Delivery Method Room Air 12/21/24 16:35 BMI result Body Mass Index 27.3 Const General: cooperative, no acute distress, well developed and well groomed Nutritional Appearance: average body habitus and well nourished Orientation/consciousness: oriented to person, oriented to place and oriented to time Limitations: No language barrier and ambulation with cane HEENT Head: Yes normocephalic and Yes atraumatic Eyes General: appearance normal, both eyes and all related structures Pupils: Equal, round and reactive pupils present Neck Neck: Yes normal visual inspection and Yes no lymphadenopathy Thyroid: Thyroid normal Resp Effort & Inspection: normal respiratory effort and able to speak in complete sentences Auscultation: clear to auscultation bilaterally Cardio Rate: regular rate Rhythm: regular rhythm Heart sounds: Normal, physiologic split S2 sound present Peripheral pulses: radial pulses present and posterior tibial pulses present GI Inspection: No distended and No Abdominal panniculus present Palpation (GI): Soft to palpation, nontender, no guarding, not rigid and No hepatosplenomegaly present Percussion: Yes normal to percussion Auscultation: normal bowel sounds Rectal Exam - Female: deferred Skin General skin exam: no rashes or lesions noted, turgor normal, skin not dry, no jaundice, No spider nevi and no striae Rashes: no rashes Nails: normal Neuro General: oriented to person, oriented to place and oriented to time Cranial nerves: Yes Equal, round and reactive pupils present and Yes Normal hearing present Speech: No Abnormal speech present Extrem General: Yes normal to inspection, No clubbing, No cyanosis and No edema Psych Appearance: grossly normal and well kempt Mental Status: mental status grossly normal Speech and movement: Normal speech and movement present Affect: normal affect Attitude: cooperative Thought process: Normal thought process present and not confabulating Thought content: Normal thought content present Insight: Limited insight present (Psych) Judgement: Limited judgement present (Psych) Assessment & Plan Assessment & Plan (1) Upper abdominal pain: Code(s): R10.10 - Upper abdominal pain, unspecified Category: Medical (2) Nausea & vomiting: Code(s): R11.2 - Nausea with vomiting, unspecified Category: Medical Plan (today she has had an unremarkable CAT scan 05/2024, an unremarkable EGD, an unremarkable barium swallow with no GERD or hiatal hernia in 2021, negative fecal calprotectin, negative H pylori testing, negative celiac panel, the only food allergy uncovered worse Lizz nuts, but she does have a history of opiate use disorder which could be causing gut hyperesthesia, she feels that it may be triggered by heat and sweating, certain smells, and headaches) Her vomiting seems to have return. She really can not give me any reasons why it seemed to come back so suddenly except she does admit she was under more stress. This makes me wonder if the sucralfate was really the solution that we thought it was or whether she was just in a law in terms of her episodic recurring exacerbating and remitting nausea and vomiting. We really done a thorough GI workup so I am beginning to think that this is not of GI origin. I educated her that the possibilities do include things like neurologic metabolic or even psychogenic causes. To be completely thorough we will get a HIDA scan, a lipase to check for possible pancreatitis (although she does not seem to have severe abdominal pain that would go if this), and a general Chem panel. Since she has no response with Zofran (also quite odd) I will try her on Reglan to see if this gives her some quality of life. I encouraged her to continue to try to follow this up with her primary care provider so that other specialists can be involved in trying to get to the root of the problem. She already has an appointment booked for me on 01/11 and we will keep that appointment. Orders: Orders NM hepatobiliary w pharm 12/21/24 R10.10 - Upper abdominal pain, unspecified Amylase 12/21/24 R10.10 - Upper abdominal pain, unspecified, R11.2 - Nausea with vomiting, unspecified Comprehensive Met. Panel 12/21/24 R10.10 - Upper abdominal pain, unspecified, R11.2 - Nausea with vomiting, unspecified Lipase 12/21/24 R10.10 - Upper abdominal pain, unspecified, R11.2 - Nausea with vomiting, unspecified Medications: New metoclopramide HCl (Reglan) 5 mg PO QIDACHS 120 tabs 3RF R11.2 - Nausea with vomiting, unspecified Refilled sucralfate (Carafate) 1 g PO BID 60 tabs 6RF R11.2 - Nausea with vomiting, unspecified Coding Level of Care Code Est Pt Level 4 (05357) Diagnoses Upper abdominal pain R10.10 Nausea & vomiting R11.2
[2024-12-21 16:35] VITALS: BP 112/52; PULSE 68; O2SAT 98; BMI 27.3
--- OUTSIDE RECORDS SUMMARY | 2024-12-21 18:14 | XMS_ITS | Encounter Summary ---
Author Organization [employer] Address [address] [place] [address] Care Team Providers Care Enamel Burner Name Role Phone Joyce Isaacs MD Primary Care Provider [phone] Reason for Visit * Reason Comments Med Change Request Encounter Details Date Type Department Care Team ([facility] Contact Info) Description 06/02/2023 Refill [facility] [address] [place] [address] Joyce Isaacs MD [address] [place] [address] Nausea and vomiting, unspecified vomiting type Social History Tobacco Use Types Packs/Day Years Used Date Smoking Tobacco: Unknown Depression Answer Date Recorded Patient Health Questionnaire-9 Score 5 01/25/2023 Housing Stability Answer Date Recorded What is your housing situation today? I have ilda mcelroy 05/24/[address] you li ve. Do you have problems with any of the following? None of the above 05/24/2023 Food Insecurity Answer Date Recorded Within the past 12 months, y ou worried that your food would run out before you got money to buy more: Never True 05/24/2023 Within the past 12 months,th e food you bought just didn't last and you didn't have enough money to get more: Never True 12/2022 Transportation Answer Date Recorded In the past 12 months, has l ack of transportation kept you from medical appts, meetings, work or from getting things needed for daily living? No 05/24/2023 Utilities Answer Date Recorded In the past 12 months, has t he electric, gas, oil or water company threatened to shut off services in your home? No 05/24/2023 Depression Answer Date Recorded Patient Health Questionnaire-2 Score 3 01/25/2023 Comments Unknown Sex and Gender Information Value Date Recorded Sex Assigned at Female 05/18/2022 10:37 AM EDT Legal Sex Female 10:37 AM EDT Gender Identity Female 05/18/2022 10:37 AM EDT Sexual Orientation Choose not to disclose 2021 10:37 AM EDT documented as of this encounter Plan of Treatment Not on file documented as of this encounter Visit Diagnoses Diagnosis Nausea and vomiting, unspecified vomiting type documented in this encounter Additional Health Concerns Assessment Noted Time PHQ-9 Depression Total Score: 5 01/26/20 23 8:50 AM EDT documented as of this encounter Care Teams Enamel Burner Relationship Specialty Start Date End Date Joyce Isaacs MD [address] [place] [address] PCP - General Family Medicine 03/17/21 documented as of this encounter
== END 2024-12-21 17:08 | disposition home or self-care (01) ==
LOC: HO.HGI 16:11
PROVIDERS: Visit Provider Nurse Practitioner
DX: R10.10 Upper abdominal pain, unspecified (principal); R11.2 Nausea with vomiting, unspecified
CPT/HCPCS: 99214

== ENCOUNTER → 2024-12-21 16:11 | Outpatient (BNVA) | payer OTHER, SELFPAY | PROVIDERS: Visit Provider Nurse Practitioner | DX: K29.50 Unspecified chronic gastritis without bleeding (principal); R11.2 Nausea with vomiting, unspecified; R10.10 Upper abdominal pain, unspecified | CPT/HCPCS: 99212 ==

== ENCOUNTER 2025-01-11 16:11 | Outpatient (AMB) | payer OTHER, SELFPAY ==
--- NOTE | 2025-01-11 16:12 | MHC.OFFVIS ---
Vital Signs 01/11/25 16:18 Height 5 ft 6 in Weight 169 lb BMI 27.3 BP 126/60 Blood Pressure Location Rt brachial Position Sitting Pulse 64 Pulse Source Pulse Oximeter Pulse Oximetry (%) 99 Oxygen Delivery Method Room Air Intake Visit Reasons: egd agustín Intake Note: Established patient for mgmt of chronic N+V. S/P EGD CC; C.O. chronic sx persistence despite current therapies. Pt reports no improvements in presentation since prior to last visit and in fact reports that her N+V has gotten slightly more frequent and worse in severity. 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 Glass Frame Polisher Required: No Accompanied by: Self / Same As Patient Allergies No Known Allergies Allergy (Verified 01/11/25 16:14) HPI HPI egd agustín: Details: Assessment & Plan (1) Upper abdominal pain: Code(s): R10.10 - Upper abdominal pain, unspecified Category: Medical (2) Nausea & vomiting: Code(s): R11.2 - Nausea with vomiting, unspecified Category: Medical Plan (to date she has had an unremarkable CAT scan 05/2024, an unremarkable EGD, an unremarkable barium swallow with no GERD or hiatal hernia in 2021, negative fecal calprotectin, negative H pylori testing, negative celiac panel, the only food allergy uncovered worse Lizz nuts, but she does have a history of opiate use disorder which could be causing gut hyperesthesia, she feels that it may be triggered by heat and sweating, certain smells, and headaches) Her vomiting seems to have return. She really can not give me any reasons why it seemed to come back so suddenly except she does admit she was under more stress. This makes me wonder if the sucralfate was really the solution that we thought it was or whether she was just in a law in terms of her episodic recurring exacerbating and remitting nausea and vomiting. We really done a thorough GI workup so I am beginning to think that this is not of GI origin. I educated her that the possibilities do include things like neurologic metabolic or even psychogenic causes. To be completely thorough we will get a HIDA scan, a lipase to check for possible pancreatitis (although she does not seem to have severe abdominal pain that would go if this), and a general Chem panel. Since she has no response with Zofran (also quite odd) I will try her on Reglan to see if this gives her some quality of life. I encouraged her to continue to try to follow this up with her primary care provider so that other specialists can be involved in trying to get to the root of the problem. She already has an appointment booked for me on 01/11 and we will keep that appointment. Orders: Orders NM hepatobiliary w pharm 12/21/24 R10.10 - Upper abdominal pain, unspecified Amylase 12/21/24 R10.10 - Upper abdominal pain, unspecified, R11.2 - Nausea with vomiting, unspecified Comprehensive Met. Panel 12/21/24 R10.10 - Upper abdominal pain, unspecified, R11.2 - Nausea with vomiting, unspecified Lipase 12/21/24 R10.10 - Upper abdominal pain, unspecified, R11.2 - Nausea with vomiting, unspecified Medications: New metoclopramide HCl (Reglan) 5 mg PO QIDACHS 120 tabs 3RF R11.2 - Nausea with vomiting, unspecified Refilled sucralfate (Carafate) 1 g PO BID 60 tabs 6RF R11.2 - Nausea with vomiting, unspecified 8 LABS; Laboratory Tests 05/31/24 14:12 Estimated GFR > 60 Total Bilirubin 2.0 H AST 23 ALT 18 Alkaline Phosphatase 57 Lipase 27 HIDA SCAN 01/29/2025 TODAYS VISIT (to date she has had an unremarkable CAT scan 05/2024, an unremarkable EGD, an unremarkable barium swallow with no GERD or hiatal hernia in 2021, negative fecal calprotectin, negative H pylori testing, negative celiac panel, the only food allergy uncovered worse Lizz nuts, lipase/amylase not elevated, but she does have a history of opiate use disorder which could be causing gut hyperesthesia, she feels that it may be triggered by heat and sweating, certain smells, and headaches. The sx do not respond to zofran or reglan) The reglan did not help her, it only seemed to make her sx worse. Agustina is of the opinion that this is r/t her suboxone therapy, Inderjit endourage her to work on this possibility with her prescriber, since self tapering can be harmful to her GI presentation and to her longwall foreman recovery. She notes that she is mostly waking up at 2-3am with the N/V most recently. Next appt with , I am out of ideas. She wants an FMLA for this, I am willing to provider her with 3 mos, but ultimately I don't think this is a problem we will be managing fpc so we should not continue this indefinitely. She thinks she will need 8 hrs off with occurances of about 3 times a mos. [facility] Medical History Chronic gastritis COVID-19 H pylori ulcer Nausea & vomiting Goiter Vitamin D deficiency Hyperthyroidism Environmental allergies Surgical History History of esophagogastroduodenoscopy (EGD) No history of previous surgery Family History Father History of cancer Mother Hx of breast cancer Social History Household Members: None Are you a primary manager home healthcare to a significant other at home: No Do you presently have visiting nurse or other home services: No Alcohol intake: former Patient Tobacco Use Status: Former Tobacco user Tobacco use type: Cigarette Substance Use Type: Marijuana Current occupational status: employed Current occupation: [employer] Const Denies fatigue, Denies fever(s), Denies night sweats, Denies poor appetite and Denies weight loss ENT Reports Normal hearing present, Denies dental pain, Denies dysphagia, Denies hearing loss, Denies mouth pain, Denies odynophagia, Denies throat swelling, Denies tongue swelling and Reports other (Dentition adequate) Card Reports no additional complaints Resp Reports no additional complaints GI Details: Denies abdominal pain, Denies melena, Denies bloating, Denies hematochezia, Denies constipation, Denies GI cramping, Denies dysphagia, Denies excessive flatus, Denies early satiety, Denies heartburn, Denies diarrhea, Reports nausea, Denies odynophagia, Reports vomiting and Denies hematemesis Skin/Breast Denies pruritus, Denies lesions, Denies rash and Denies jaundice Neuro Reports Normal hearing present and Denies Abnormal speech present Endo Denies fatigue Aller/Immun Denies throat swelling and Denies tongue swelling Physical Exam Vital Signs: Last Vital Signs Pulse 64 01/11/25 16:18 BP 126/60 01/11/25 16:18 Pulse Ox 99 01/11/25 16:18 Oxygen Delivery Method Room Air 01/11/25 16:18 BMI result Body Mass Index 27.3 Const General: cooperative, no acute distress, well developed and well groomed Nutritional Appearance: average body habitus and well nourished Orientation/consciousness: oriented to person, oriented to place and oriented to time Limitations: No language barrier HEENT Head: Yes normocephalic and Yes atraumatic Eyes General: appearance normal, both eyes and all related structures Pupils: Equal, round and reactive pupils present Neck Neck: Yes normal visual inspection and Yes no lymphadenopathy Thyroid: Thyroid normal Resp Effort & Inspection: normal respiratory effort and able to speak in complete sentences Auscultation: clear to auscultation bilaterally Cardio Rate: regular rate Rhythm: regular rhythm Heart sounds: Normal, physiologic split S2 sound present Peripheral pulses: radial pulses present and posterior tibial pulses present GI Inspection: No distended and No Abdominal panniculus present Palpation (GI): Soft to palpation, nontender, no guarding, not rigid and No hepatosplenomegaly present Percussion: Yes normal to percussion Auscultation: normal bowel sounds Rectal Exam - Female: deferred Skin General skin exam: no rashes or lesions noted, turgor normal, skin not dry, no jaundice, No spider nevi and no striae Rashes: no rashes Nails: normal Neuro General: oriented to person, oriented to place and oriented to time Cranial nerves: Yes Equal, round and reactive pupils present and Yes Normal hearing present Speech: No Abnormal speech present Extrem General: Yes normal to inspection, No clubbing, No cyanosis and No edema Psych Appearance: grossly normal and well kempt Mental Status: mental status grossly normal Speech and movement: Normal speech and movement present Affect: normal affect Attitude: cooperative Thought process: Normal thought process present and not confabulating Thought content: Normal thought content present Insight: Limited insight present (Psych) Judgement: Limited judgement present (Psych) Assessment & Plan Assessment & Plan (1) Nausea & vomiting: Code(s): R11.2 - Nausea with vomiting, unspecified Category: Medical Plan (to date she has had an unremarkable CAT scan 05/2024, an unremarkable EGD, an unremarkable barium swallow with no GERD or hiatal hernia in 2021, negative fecal calprotectin, negative H pylori testing, negative celiac panel, the only food allergy uncovered worse Lizz nuts, lipase/amylase not elevated, but she does have a history of opiate use disorder which could be causing gut hyperesthesia, she feels that it may be triggered by heat and sweating, certain smells, and headaches. The sx do not respond to zofran or reglan. Either this is not of GI origin or there are other factors such as psychogenic or even secondary gains problems at play) The reglan did not help her, it only seemed to make her sx worse. Agustina is of the opinion that this is r/t her suboxone therapy, Inderjit encourage her to work on this possibility with her prescriber, since self tapering can be harmful to her GI presentation and to her longwall foreman recovery. She notes that she is mostly waking up at 2-3am with the N/V most recently. Next appt with , I am out of ideas. She wants an FMLA for this, I am willing to provider her with 3 mos, but ultimately I don't think this is a problem we will be managing longwall foreman so we should not continue this indefinitely. She thinks she will need 8 hrs off with occurrences of about 3 times a mos. HIDA SCAN 01/29/2025 Medications: Changed From ondansetron 4 mg PO Q8H PRN 10 tabs 0RF nausea and vomiting To ondansetron 4 mg PO Q8H 90 tabs 0RF nausea and vomiting On Hold metoclopramide HCl (Reglan) Hold Comment: Doctor's Order 5 mg PO QIDACHS 120 tabs 3RF R11.2 - Nausea with vomiting, unspecified Coding Level of Care Code Est Pt Level 3 (55071) Diagnoses Nausea & vomiting R11.2
[2025-01-11 16:18] VITALS: BP 126/60; PULSE 64; O2SAT 99; BMI 27.3
--- OUTSIDE RECORDS SUMMARY | 2025-01-11 19:41 | XMS_ITS | Encounter Summary ---
Author Organization [facility] Address [address] [place] [address] Care Team Providers Care Last Repairer Name Role Phone Ramirez Taylor MD Primary Care Provide r Unavailable Joyce Isaacs MD Primary Care Provider Ramirez De Anda MD Primary Care Provide r Unavailable Encounter Details Date Type Department Care Team Description 06/04/2020 SCAN Medical Records [address] [place] [address] Abstract, Provider Social History Tobacco Use Types Packs/Day Years Used Date Smoking Tobacco: Former Smokeless Tobacco: Never Alcohol Use Standard Drinks/Week Comments No 0 (1 standard drink = 0.6 oz pur e alcohol) Alcohol Habits Answer Date Recorded How often do you have a drink containing alcohol ? Never 05/09/2020 How many drinks containing a lcohol do you have on a typical day when you are drinking? Not asked How often do you have six or more drinks on one occasion? Not asked Sex Assigned at Date Recorded Not on file Job Start Date Occupation Industry Not on file Not on file Not on file COVID-19 Exposure Response Date Recorded In the last month, have you been in contact with someone who was confirmed or suspected to have Coronavirus / COVID-19? No / Unsure 05/27/2020 1:25 PM EST documented as of this encounter Plan of Treatment Not on file documented as of this encounter Visit Diagnoses Not on filedocumented in this encounter Care Teams Last Repairer Relationship Specialty Start Date End Date Ramirez Taylor MD PCP - General Internal Medicine 05/27/20 Joyce Isaacs MD PCP - General Family Practice 03/17/22 05/25/22 Ramirez Taylor MD PCP - General Internal Medicine 05/26/22 documented as of this encounter
== END 2025-01-11 16:49 | disposition home or self-care (01) ==
LOC: HO.HGI 16:12
PROVIDERS: Visit Provider Nurse Practitioner
DX: R11.2 Nausea with vomiting, unspecified (principal)
CPT/HCPCS: 99213

== ENCOUNTER → 2025-01-11 16:11 | Outpatient (BNVA) | payer OTHER, SELFPAY | PROVIDERS: Visit Provider Nurse Practitioner | DX: R11.2 Nausea with vomiting, unspecified (principal); R10.10 Upper abdominal pain, unspecified | CPT/HCPCS: 99212 ==

== ENCOUNTER → 2025-01-29 07:56 | Outpatient (REF) | payer OTHER, SELFPAY ==
--- NOTE | ~2025-01-29 | NM_ITS ---
EXAMINATION: NM HEPATOBILIARY WITH PHARM HISTORY: R10.10 - Upper abdominal pain, unspecified. TECHNIQUE: An hepatobiliary scan was performed following the intravenous administration of 5.0 mCi technetium 99m-mebrofenin. Sequential images were obtained over 1 hour. Subsequently, the patient received 1.5 microgram of IV CCK over 30 minutes and additional imaging was performed. COMPARISON: Correlation is made with a CT of the abdomen with contrast dated 05/31/2024. FINDINGS: There is normal uptake and excretion of the radiopharmaceutical by the liver. Gallbladder activity is noted at 34 minutes. Common bile duct activity is seen at 14 minutes. Small bowel activity is noted at 18 minutes. After the administration of intravenous CCK, the estimated gallbladder ejection fraction is 29%, which is low (normal 35-80%). NM/NM hepatobiliary w pharm IMPRESSION: No evidence of cystic duct obstruction. The gallbladder ejection fraction is abnormally low at 29%. Electronically signed by: Lucas Melvin MD 01/29/2025 10:58 AM EDT
--- OUTSIDE RECORDS SUMMARY | 2025-01-29 07:58 | XMS_ITS | Clinical Summary ---
Author Organization [facility] [address] [facility] Address [address] [place] [address] Phone Care Team Providers Care System Programmer Name Role Phone Ramirez Taylor MD Primary Care Provi enedina Allergies No known active allergies Medications buprenorphine- naloxone (SUBOXONE) 2-0.[address] 2 mg under the tongue daily. Active FLUoxetine (PROzac) 10 mg capsule Take 10 mg by mouth daily. Active aluminum-magne sium hydroxide-bianka thicone (MAALOX) 200-200-20 mg/5 mL suspension Take 15 mL by mouth 4 times daily (before meals and nightly). 07/08/20 22 Active methIMAzole (TAPAZOLE) 5 mg tablet Take 5 mg by mouth daily. 01/14/20 21 Active omeprazole (PriLOSEC) [address] capsule Take 1 Capsule by mouth daily. Take in a.m. on empty stomach, wait 30 minutes and then eat to activate medication 06/24/20 22 Active pantoprazole (PROTONIX) 40 mg EC tablet Take 1 Tablet by mouth daily. 07/08/20 22 Active norethindrone (ORIAAN,ULISES, TORY,MICRON OR) 0.35 mg tablet Take 1 tablet (0.35 mg total) by mouth 1 (one) time each day. 28 tablet 11 01/23/20 25 026 Active norethindrone- ethinyl estradiol (ORTHO-NOVUM 1-35 TAB,NORTREL 1-35 TAB) 1-35 mg-mcg per tablet Take 1 tablet by mouth 1 (one) time each day. 84 tablet 1 08/04/19 25 025 Discontinued Active Problems Problem Noted Date Diagnosed Date Acute stress reaction 05/26/2022 Nausea and vomiting 05/26/2022 Perimenopause 05/26/2022 Overview (06/09/2024): Last Assessment & Plan: Patient counseled that average age of menopause is 50yo and therefore she may have entered menopause by this time, however she will continue to menstruate as long as she is taking OCPs. FSH and LH ordered to assess for menopausal status. If menopause confirmed, will transition to HRT. All questions answered. Last Assessment & Plan: Patient counseled that average age of menopause is 50yo and therefore she may have entered menopause by this time, however she will continue to menstruate as long as she is taking OCPs. FSH and LH ordered to assess for menopausal status. If menopause confirmed, will transition to HRT. All questions answered. Hot flashes 10/29/2020 Overview (06/09/2024): Last Assessment & Plan: Discussed that she may benefit from starting OCPs for both the hot flashes as well as the heavy menstrual bleeding as opposed to HRT. COCs. Pt was instrcuted in the QuickStart method of OCP initiation and proper pill sequence reviewed. Advised pt that estrogen can increase baseline risk for VTE; common temporary side effects include nausea, breast tenderness, vaginal spotting and acne. Encouraged pt to be seen within 3 months to assure satisfaction and a repeat BP check. Last Assessment & Plan: Discussed that she may benefit from starting OCPs for both the hot flashes as well as the heavy menstrual bleeding as opposed to HRT. COCs. Pt was instrcuted in the QuickStart method of OCP initiation and proper pill sequence reviewed. Advised pt that estrogen can increase baseline risk for VTE; common temporary side effects include nausea, breast tenderness, vaginal spotting and acne. Encouraged pt to be seen within 3 months to assure satisfaction and a repeat BP check. Excessive sweating 05/09/2020 Overview (06/09/2024): Last Assessment & Plan: Discussed s/sx perimenopause and conservative measures including avoiding caffiene and hot drinks, dressing in layers, etc. TSH ordered Hypercare ePrescribed Recommend follow-up with PCP Last Assessment & Plan: Discussed s/sx perimenopause and conservative measures including avoiding caffiene and hot drinks, dressing in layers, etc. TSH ordered Hypercare ePrescribed Recommend follow-up with PCP Menorrhagia with regular cycle 05/09/2020 Overview (06/09/2024): Given OCPs, never followed up Do not refill unless she attends next scheduled visit 05/2022 Last Assessment & Plan: Pelvic US ordered Patient to return for EMB. Given OCPs, never followed up Do not refill unless she attends next scheduled visit 05/2022 Last Assessment & Plan: Pelvic US ordered Patient to return for EMB. Encounters Date Type Department Care Team Description 01/22/2025 4:00 PM EDT Consult Obstetrics and Gynecology [address] [id number] Estrella Howell CNM Irregular periods (Primary Dx); Headache associated with hormonal factors; Perimenopause; Tired; control counseling from Last 3 Months Surgical History Surgery Date Site/Laterality Comments OTHER SURGICAL HISTORY PROCEDURE: DENIES PREVIOUS SURGERY Medical History Medical History Date Comments Substance abuse (CMS/HCC V24, CMS/HCC V28) DX:Substance abuse ([facility]) Nausea and vomiting DX:Nausea an d vomiting Acute stress reaction DX:Acute s tress reaction Nausea and vomiting DX:Nausea an d vomiting Headache DX:Headache Gastritis DX:Gastritis History of migraine Family History Medical History Relation Name Comments Breast cancer Aunt mother's siste r, dx'd in 30s Prostate cancer Father Breast cancer Mother dx'd 75 pt thinks she tested BRCA neg Cancer of Small Bowel Neg Hx Colon cancer Neg Hx Kidney cancer Neg Hx Ovarian cancer Neg Hx Pancreatic cancer Neg Hx Uterine cancer Neg Hx Relation Name Status Comments Aunt Alive Father Mother dx'd 75 Alive Social History Tobacco Use Types Packs/Day Years Used Date Smoking Tobacco: Former Smokeless Tobacco: Never Tobacco Cessation:Counseling Given: Not Answered Alcohol Use Standard Drinks/Week Comments No 0 (1 standard drink = 0.6 oz pur e alcohol) Comments No Sex and Gender Information Value Date Recorded Sex Assigned at Not on file Legal Sex Female 9:55 PM EST Gender Identity Not on file Sexual Orientation Not on file Obstetrics History Para Term AB IAB SAB Ectopic Multiple Livin g Live Births 5 1 1 4 2 1 1 Date Outcome GA Total Labor Labor/2nd/3rd Weight Sex Type Anes PTL Ruby A1 A5 Name Clin SAB SAB AB AB 1992 Term Vag-S pont Living Last Filed Vital Signs Vital Sign Reading Time Taken Comments Blood Pressure 134/80 01/22/2025 4:07 PM EDT Pulse 81 01/22/2025 4:07 PM EDT Temperature - - Respiratory Rate 17 06/09/2024 2:48 PM EST Oxygen Saturation - - Inhaled Oxygen Concentration - - Weight 81.2 kg (179 lb) 01/22/2025 4:07 PM EDT Height 167.6 cm (5' 6 ) 05/26/2022 11:06 AM EST Body Mass Index 28.89 05/26/2022 11:06 AM EST Plan of Treatment Health Maintenance Due Date Last Done Comments DTaP,Tdap,and Td Vaccines (1 - Tdap) 1988 Hepatitis B Vaccines (1 of 3 - 19+ 3-dose series) 1988 Pneumococcal Vaccine: 50+ Ye ars (1 of 1 - PCV) 10/22/2019 Zoster Vaccines (1 of 2) 10/22/2019 Colorectal Cancer Screening: Colonoscopy 06/27/2022 HIV Screening 06/27/2022 Hepatitis C Screening 06/27/2022 Social Influencers of Health Screening 06/27/2022 Breast Cancer Screening 10/15/2022 10/15/2020 COVID-19 Vaccine (1 - 2023-2 5 season) 2024 Influenza Vaccine (#1) 2025 Cervical Cancer Screening: HPV 05/09/2025 05/09/2020 Depression Screening 08/14/2025 08/14/2024 HIB Vaccines Aged Out No longer eligi ble based on patient's age to complete this topic HPV Vaccines Aged Out No longer eligi ble based on patient's age to complete this topic Hepatitis A Vaccines Aged Out No long er eligible based on patient's age to complete this topic IPV Vaccines Aged Out No longer eligi ble based on patient's age to complete this topic MMR Vaccines Aged Out No longer eligi ble based on patient's age to complete this topic Meningococcal ACWY Vaccine Aged Out N o longer eligible based on patient's age to complete this topic Meningococcal B Vaccine Aged Out No l onger eligible based on patient's age to complete this topic RSV Immunization Patients Un enedina 20 months Aged Out No longer eligible b ased on patient's age to complete this topic Varicella Vaccines Aged Out No longer eligible based on patient's age to complete this topic Procedures Procedure Name Priority Date/Time Associated Diagnosis Comments CBC WITH AUTO DIFFERENTIAL Routine 01/22/2025 4:46 PM EDT Tired THYROID STIMULATING HORMONE WITH REFLEX TO FREE T4 AND FREE T3 Routine 01/22/2025 4:46 PM EDT Hyperthyroidism FOLLICLE STIMULATING HORMONE Routine 01/22/2025 4:46 PM EDT Perimenopause ESTRADIOL Routine 01/22/2025 4:46 PM EDT Perimenopause CBC AND DIFFERENTIAL Routine 01/22/2025 4:46 PM EDT Tired SCR MAMMO BI INCL CAD Routine 10/15/2020 7:51 AM EDT Encounter for screening mammogram for malignant neoplasm of breast Encounter for gynecological examination (general) (routine) without abnormal findings HM HPV Routine 05/09/2020 from Last 3 Months or Most Recently Relevant to Health Maintenance Results * Thyroid stimulating hormone with reflex to free t4 and free t3 (01/22/2025 4:46 PM EDT) TSH 0.59 0.40 - 4.00 mcIU/mL LAB CHEMISTRY METHOD 01/22/2025 7:21 PM EDT [facility] Blood Venous blood specimen / Unknown Venipuncture / Unknown 01/22/2025 4:46 PM EDT 01/22/2025 4:46 PM EDT Torie MAIN LAB BLOOD ORDERABLES Final Result [facility] [address] [place] [address], * (ABNORMAL) CBC auto differential (01/22/2025 4:46 PM EDT) [facility] WBC 6.7 4.8 - 10.8 K/mcL LAB HEMETOLOGY METHOD 01/22/2025 6:09 PM EDT [facility] RBC 3.80 3.80 - 4.80 M/mcL LAB HEMETOLOGY METHOD 01/22/2025 6:09 PM EDT [facility] Hemoglobin 12.4 11.5 - 16.0 g/dL LAB HEMETOLOGY METHOD 01/22[facility]2025 6:[facility] Hematocrit 37.8 35.0 - 47.0 % LAB HEMETOLOGY METHOD 01/22/2025 6:[facility] MCV 99.7(H) 79.0 - 98.0 FL LAB HEMETOLOGY METHOD 01/22/2025 6:09 [facility] MCH 32.7(H) 27.0 - 32.0 pcg LAB HEMETOLOGY METHOD 01/22/2025 6:09 [facility] MCHC 32.8 32.0 - 37.0 g/dL LAB HEMETOLOGY METHOD 01/22/2025 6:09 PM [facility] RDW 12.3 11.0 - 15.0 % LAB HEMETOLOGY METHOD 01/22/2025 6:09 PM EDT [facility] Platelets 215 130 - 400 K/mcL LAB HEMETOLOGY METHOD 01/22/2025 6:09 [facility] MPV 11.1(H) 7.0 - 11.0 FL LAB HEMETOLOGY METHOD 01/22/2025 6:09 [facility] NRBC 0.0 <1.0 % LAB HEMETOLOGY METHOD 01/22/2025 6:09 PM [facility] NRBC Absolute 0.00 <0.10 K/mcL LAB HEMETOLOGY METHOD 01/22/2025 6:09 PM [facility] Neutrophils Relative 49.3 % LAB HEMETOLOGY METHOD 01/22/2025 6:09 PM [facility] Lymphocytes Relative 39.8 % LAB HEMETOLOGY METHOD 01/22/2025 6:09 PM [facility] Monocytes Relative 8.1 % LAB HEMETOLOGY METHOD 01/22/2025 6:09 PM [facility] Eosinophils Relative 1.7 % LAB HEMETOLOGY METHOD 01/22/2025 6:09 PM [facility] Basophils Relative 0.9 % LAB HEMETOLOGY METHOD 01/22/2025 6:09 PM [facility] Immature Granulocytes Relative 0.2 % LAB HEMETOLOGY METHOD 01/22/2025 6:09 PM [facility] Neutrophils Absolute 3.28 1.50 - 7.00 K/mcL LAB HEMETOLOGY METHOD 01/22/2025 6:09 PM [facility] Lymphocytes Absolute 2.65 1.00 - 5.00 K/mcL LAB HEMETOLOGY METHOD 01/22/2025 6:09 PM [facility] Monocytes Absolute 0.54 0.20 - 1.00 K/mcL LAB HEMETOLOGY METHOD 01/22/2025 6:09 PM [facility] Eosinophils Absolute 0.11 0.00 - 0.50 K/mcL LAB HEMETOLOGY METHOD 01/22/2025 6:09 PM [facility] Basophils Absolute 0.06 0.00 - 0.20 K/mcL LAB HEMETOLOGY METHOD 01/22/2025 6:09 PM [facility] Immature Granulocytes Absolute 0.01 0.00 - 0.03 K/[facility] LAB HEMETOLOGY METHOD 01/22/2025 6:09 PM EDT [facility] Blood Venous blood specimen / Unknown Venipuncture / Unknown 01/22/2025 4:46 PM EDT 01/22/2025 4:46 PM EDT Estrella Howell [facility] LAB BLOOD ORDERABLES Final Res ult Performing Organization Address [facility]/ZIP Co de Phone Number [facility] [address] [place] [address], [place] [phone] * Estradiol (01/22/2025 4:46 PM EDT) Estradiol <11 See below pcg/mL LAB CHEMISTRY METHOD 01/22/2025 6:44 PM EDT [facility] Comment: ESTRADIOL REFERENCE RANGES (PG/ML) FEMALES NORMALLY MENSTRUATING: FOLLICULAR PHASE 21.4 - 164.8 MIDCYCLE PEAK 49.9 - 367.2 LUTEAL PHASE 40.2 - 259.0 POSTMENOPAUSAL: ON HRT <11 - 462.1 UNTREATED <11 - 58.3 Fulvestrant has been shown to cross-react with the estradiol assay and cause falsely elevated results. For patients being treated with fulvestrant, Estradiol ultrasensitive should be ordered. This test is performed by LC/MS and is not expected to show cross reactivity to fulvestrant. Blood Venous blood specimen / Unknown Venipuncture / Unknown 01/22/2025 4:46 PM EDT 01/22/2025 4:46 PM EDT Estrella Howell [facility] LAB BLOOD ORDERABLES Final Res ult Performing Organization Address [facility]/ZIP Co de Phone Number [facility] [address] [place] [address], [place] [phone] * Follicle stimulating hormone (01/22/2025 4:46 PM EDT) Follicle Stimulating Hormone 12.9 See Comment mIU/mL LAB CHEMISTRY METHOD 01/22/2025 6:44 PM EDT [facility] Comment: FSH REFERENCE RANGES (MIU/ML) FEMALES NORMALLY MENSTRUATING: FOLLICULAR PHASE 2.3 - 12.6 MIDCYCLE PEAK 5.2 - 17.5 LUTEAL PHASE 1.7 - 9.5 POSTMENOPAUSAL: ON HRT 5.9 - 72.8 UNTREATED 12.7 - 132.2 Blood Venous blood specimen / Unknown Venipuncture / Unknown 01/22/2025 4:46 PM EDT 01/22/2025 4:46 PM EDT Estrella Howell CNM LAB BLOOD ORDERABLES Final Res ult [facility] [address] [place] [address], [place] [phone] * SCR MAMMO BI INCL CAD (10/15/2020 7:51 AM EDT) Anatomical Region Laterality Modality Radiographic Alisha ging 05/09/2020 11:1 8 AM EDT Narrative 10/15/2020 9:43 AM EDT This is a summary report. The complete report is available in the patient's medical record. If you cannot access the medical record, please contact the sending organization for a detailed fax or copy. Full field digital screening mammography, reviewed with CAD and compared to previous. The breasts are composed of fatty and fibroglandular tissue. No suspicious mass, architectural distortion or suspicious calcifications are identified. IMPRESSION: : No mammographic evidence of malignancy. BIRADS 1-Negative; N. 5 year breast cancer risk assessment 1.9 % Lifetime breast cancer risk assessment 16.4 % Breast cancer risk category Moderate (15% - 20%) Procedure Note Digna Pascual MD - 07/07/2022 This is a summary report. The complete report is available in thepatient's medical record. If you cannot access the medical record, pleasecontact the sending organization for a detailed fax or copy. Full field digital screening mammography, reviewed with CAD and comparedto previous. The breasts are composed of fatty and fibroglandular tissue.No suspicious mass, architectural distortion or suspicious calcificationsare identified. IMPRESSION: : No mammographic evidence of malignancy. BIRADS 1-Negative; N. 5 year breast cancer risk assessment 1.9 % Lifetime breast cancer risk assessment 16.4 % Breast cancer risk category Moderate (15% - 20%) Alfredo Ornelas DO IMG XR PROCEDURES Final Resul t * Cervical Cancer Screening: HPV (05/09/2020) Cervical Cancer Screening: HPV abstracted Historical Provider HEALTH MAINTENANCE Final Result from Last 3 Months or Most Recently Relevant to Health Maintenance Insurance [facility] Care Teams System Programmer Relationship Specialty Start Date End Date Ramirez Taylor MD [address] [place] [address] [place] [id number] [facility] - General 05/27/20
--- OUTSIDE RECORDS SUMMARY | 2025-01-29 07:58 | XMS_ITS | Encounter Summary ---
Author Organization [employer] Address [address] [place] [address] Care Team Providers Care Counselor/Art Therapist Name Role Phone Joyce Isaacs MD Primary Care Provider [phone] Reason for Visit * Reason Comments Med Change Request Encounter Details Date Type Department Care Team ([facility] Contact Info) Description 06/02/2023 Refill [facility] [address] [place] [address] Joyce Isaacs MD [address] [place] [address] Nausea and vomiting, unspecified vomiting type Social [...] documented as of this encounter Care Teams Counselor/Art Therapist Relationship Specialty Start Date End Date Joyce Isaacs MD [address] [place] [address] PCP - General Family Medicine 03/17/21 documented as of this encounter
== END ==
LOC: HO.NUCMED 07:56
PROVIDERS: Visit Provider Nurse Practitioner
DX: R10.10 Upper abdominal pain, unspecified (principal)
CPT/HCPCS: 78227; A9537; J2805

== ENCOUNTER → 2025-01-29 07:58 | Outpatient (BNV) | payer OTHER, SELFPAY | PROVIDERS: Visit Provider Radiology Diagnostic Radiology | DX: R10.10 Upper abdominal pain, unspecified (principal) | CPT/HCPCS: 78227 ==

== ENCOUNTER 2025-04-14 09:51 | Outpatient (REF) | payer OTHER, SELFPAY ==
--- NOTE | ~2025-04-14 | MM_ITS ---
EXAMINATION: MM SCREENING DIGITAL BREAST TOMOSYNTHESIS, BILATERAL CLINICAL INFORMATION: Screening. Asymptomatic. COMPARISON: Mammography: Comparison is made with available priors TECHNIQUE: Digital breast mammography with tomosynthesis is performed in both the craniocaudal and mediolateral oblique views along with computer-aided detection (CAD). FINDINGS: The breasts are heterogeneously dense, which may obscure small masses. There are no significant masses, abnormal calcifications, or other abnormalities. MM/MM tomosynthesis screening BI IMPRESSION: No mammographic evidence of malignancy. ASSESSMENT: BI-RADS Category 1: Negative RECOMMENDATION: Routine annual mammography screening. 1 year F/U This examination should not preclude the clinical evaluation of a suspicious palpable abnormality. This patient's information was entered into a reminder system with a target due date for their next mammogram. Electronically signed by: Michelle Butts DO 04/17/2025 09:22 AM [email or web address]
--- OUTSIDE RECORDS SUMMARY | 2025-04-14 09:53 | XMS_ITS | Clinical Summary ---
Author Organization [facility] [address] [facility] Address [address] [place] [address] Phone Care Team Providers Care Rn Mobile Name Role Phone Ramirez Taylor MD Primary Care Provi enedina Allergies No known active allergies Medications buprenorphine-n aloxone (SUBOXONE) 2-0.[address] 2 mg under the tongue daily. Active FLUoxetine (PROzac) 10 mg capsule Take 10 mg by mouth daily. Active aluminum-magnes ium hydroxide-simet hicone (MAALOX) 200-200-20 mg/5 mL suspension Take 15 mL by mouth 4 times daily (before meals and nightly). 2 Active methIMAzole (TAPAZOLE) 5 mg tablet Take 5 mg by mouth daily. 1 Active omeprazole (PriLOSEC) [address] capsule Take 1 Capsule by mouth daily. Take in a.m. on empty stomach, wait 30 minutes and then eat to activate medication 2 Active pantoprazole (PROTONIX) 40 mg EC tablet Take 1 Tablet by mouth daily. 2 Active norethindrone (ORIANA,Low MONTGOMERY,PAZ ) 0.35 mg tablet Take 1 tablet (0.35 mg total) by mouth 1 (one) time each day. 28 tablet 11 5 01/22/20 26 Active Active Problems Problem Noted Date Diagnosed Date [...] 4:00 PM EDT Consult Obstetrics and Gynecology [address] [address] Estrella Howell CNM Irregular periods (Primary Dx); Headache associated with hormonal factors; Perimenopause; Tired; control counseling from Last 3 Months Surgical History Surgery Date Site/Laterality Comments OTHER SURGICAL HISTORY PROCEDURE: DENIES PREVIOUS SURGERY Medical History Medical History Date Comments Substance abuse (CMS/HCC V24, CMS/HCC V28) DX:Substance abuse ([facility]) Nausea and vomiting DX:Nausea an d vomiting [...] Sexual Orientation Not on file Obstetrics History * This document contains information received from the source organization and may not represent a complete record from that organization. Para Term AB IAB SAB Ectopic Multiple Livin g Live Births 5 1 1 1 1 Date Outcome GA Total Labor Labor/2nd/3rd Weight Sex Type Anes PTL Ruby A1 A5 Name Clin 1992 Term Vag-S pont Living Last Filed [...] Screening 06/27/2022 Breast Cancer Screening 10/15/2022 10/15/2020 Depression Screening 07/19/2024 COVID-19 Vaccine (1 - 2023-2 5 season) 2025 Influenza Vaccine (#1) 2025 Cervical Cancer Screening: HPV 05/09/2025 05/09/2020 HIB Vaccines Aged Out No longer eligi [...] LAB CHEMISTRY METHOD 01/22/2025 7:21 PM EDT [facility] Blood Venous blood specimen / Unknown Venipuncture / Unknown 01/22/2025 4:46 PM EDT 01/22/2025 4:46 PM EDT Torie Berrios CNM LAB BLOOD ORDERABLES Final Result [facility] [address] [place] [address], [place] [phone] * (ABNORMAL) CBC auto differential (01/22/2025 4:46 PM EDT) [facility] WBC 6.7 4.8 - 10.8 K/mcL LAB HEMETOLOGY METHOD 01/22/2025 6:09 PM [facility] RBC 3.80 3.80 - 4.80 M/mcL LAB HEMETOLOGY METHOD 01/22/2025 6:09 PM [facility] Hemoglobin 12.4 11.5 - 16.0 g/dL LAB HEMETOLOGY METHOD 01/22/2025 6:09 PM [facility] Hematocrit 37.8 35.0 - 47.0 % LAB HEMETOLOGY METHOD 01/22/2025 6:09 PM [facility] MCV 99.7(H) 79.0 - 98.0 FL LAB HEMETOLOGY METHOD 01/22/2025 6:09 PM [facility] MCH 32.7(H) 27.0 - 32.0 pcg LAB HEMETOLOGY METHOD 01/22/2025 6:09 PM [facility] MCHC 32.8 32.0 - 37.0 g/dL LAB HEMETOLOGY METHOD 01/22/2025 6:09 PM [facility] RDW 12.3 11.0 - 15.0 % LAB HEMETOLOGY METHOD 01/22/2025 6:09 PM [facility] Platelets 215 130 - 400 K/mcL LAB HEMETOLOGY METHOD 01/22/2025 6:09 PM [facility] MPV 11.1(H) 7.0 - 11.0 FL LAB HEMETOLOGY METHOD 01/22/2025 6:09 PM [facility] NRBC 0.0 <1.0 % LAB HEMETOLOGY METHOD 01/22/2025 6:09 PM [facility] NRBC Absolute 0.00 <0.10 K/mcL LAB HEMETOLOGY METHOD 01/22/2025 6:09 PM [facility] Neutrophils Relative 49.3 % LAB HEMETOLOGY METHOD 01/22/2025 6:09 PM [facility] Lymphocytes Relative 39.8 % LAB HEMETOLOGY METHOD 01/22/2025 6:09 PM [facility] Monocytes Relative 8.1 % LAB HEMETOLOGY METHOD 01/22/2025 6:09 PM [facility] Eosinophils Relative 1.7 % LAB HEMETOLOGY METHOD 01/22/2025 6:09 PM [facility] Basophils Relative 0.9 % LAB HEMETOLOGY METHOD 01/22/2025 6:09 PM [facility] Immature Granulocytes Relative 0.2 % LAB HEMETOLOGY METHOD 01/22/2025 6:09 PM [facility] Neutrophils Absolute 3.28 1.50 - 7.00 K/mcL LAB HEMETOLOGY METHOD 01/22/2025 6:09 PM [facility] Lymphocytes Absolute 2.65 1.00 - 5.00 K/mcL LAB HEMETOLOGY METHOD 01/22/2025 6:09 PM [facility] Monocytes Absolute 0.54 0.20 - 1.00 K/mcL LAB HEMETOLOGY METHOD 01/22/2025 6:09 PM [facility] Eosinophils Absolute 0.11 0.00 - 0.50 K/mcL LAB HEMETOLOGY METHOD 01/22/2025 6:09 PM [facility] Basophils Absolute 0.06 0.00 - 0.20 K/mcL LAB HEMETOLOGY METHOD 01/22/2025 6:09 PM [facility] Immature Granulocytes Absolute 0.01 0.00 - 0.03 K/mcL LAB HEMETOLOGY METHOD 01/22/2025 6:09 PM [facility] Blood Venous blood specimen / Unknown Venipuncture / Unknown 01/22/2025 4:46 PM EDT 01/22/2025 4:46 PM EDT us Estrella Howell [facility] BLOOD ORDERABLES Final Res ult Performing Organization Address [facility]/ZIP Co de Phone Number [facility] [address] [place] [address], [place] [phone] * Estradiol (01/22/2025 4:46 PM EDT) Estradiol <11 See below pcg/mL LAB CHEMISTRY METHOD 01/22/2025 6:44 PM EDT [facility] Comment: ESTRADIOL REFERENCE RANGES (PG/ML) [...] 4:46 PM EDT 01/22/2025 4:46 PM EDT us Estrella Howell [facility] BLOOD ORDERABLES Final Res ult Performing Organization Address [facility]/ZIP Co de Phone Number [facility] [address] [place] [address], [place] [phone] * Follicle stimulating hormone (01/22/2025 4:46 PM EDT) Follicle Stimulating Hormone 12.9 See Comment mIU/mL LAB CHEMISTRY METHOD 01/22/2025 6:44 PM EDT [facility] Comment: FSH REFERENCE RANGES (MIU/ML) FEMALES NORMALLY MENSTRUATING: FOLLICULAR PHASE 2.3 - 12.6 MIDCYCLE PEAK 5.2 - 17.5 LUTEAL PHASE 1.7 - 9.5 POSTMENOPAUSAL: ON HRT 5.9 - 72.8 UNTREATED 12.7 - 132.2 Blood Venous blood specimen / Unknown Venipuncture / Unknown 01/22/2025 4:46 PM EDT 01/22/2025 4:46 PM EDT Estrella Howell CN LAB BLOOD ORDERABLES Final Res ult [facility] ([facility] [address] [place] [address], [place] [phone] * SCR MAMMO BI INCL CAD (10/15/2020 [...] cancer risk category Moderate (15% - 20%) us Alfredo Ornelas DO IMG XR PROCEDURES Final Resul t * Cervical Cancer Screening: HPV (05/09/2020) [facility] Cervical Cancer Screening: HPV abstracted Historical Provider MD HEALTH MAINTENANCE Final Result from Last 3 Months or Most Recently Relevant to Health Maintenance Insurance [facility] Care Teams Rn Mobile Relationship Specialty Start Date End Date Ramirez Tyalor MD [address] [place] [address] [place] [address] PCP - General 05/27/20
--- OUTSIDE RECORDS SUMMARY | 2025-04-14 09:53 | XMS_ITS | Encounter Summary ---
Author Organization [employer] Address [address] [facility] [address] [place] [address] Care Team Providers Care Chief Fundraising Officer Name Role Phone Joyce Isaacs MD Primary Care Provider [phone] Reason for Visit * Reason Onset Date Comments Appointment Request 01/27/2023 Encounter Details Date Type Department Care Team ([facility] Contact Info) Description 01/27/2023 Telephone [facility] MED & PEDS [address] [place] [address] Joyce Isaacs MD [address] [place] [address] Appointment Request Social History Tobacco Use Types Packs/Day Years Used Date Smoking Tobacco: Never Assessed Depression Answer Date Recorded Patient Health Questionnaire-9 Score 5 01/25/2023 Depression Answer Date Recorded Patient Health Questionnaire-2 Score 3 01/25/2023 Comments Unknown Sex and Gender Information Value Date Recorded Sex Assigned at Female 05/18/2022 10:37 AM EDT Legal Sex Female 10:37 AM EDT Gender Identity Female 05/18/2022 10:37 AM EDT Sexual Orientation Choose not to disclose 2021 10:37 AM EDT documented as of this encounter Miscellaneous Notes * Telephone Encounter - Thao Jimenez - 01/27/2023 9:58 AM EDT Tc from patient requesting an in person f/u appt per PCP visit notes from last tele visit on 01/25/23. Details: Will scheduled follow up appointment in person to evaluate R lower extremity. documented in this encounter Plan of Treatment Not on file documented as of this encounter Visit Diagnoses Not on filedocumented in this encounter Additional Health Concerns Assessment Noted Time PHQ-9 Depression Total Score: 5 01/26/20 23 8:50 AM EDT documented as of this encounter Care Teams Chief Fundraising Officer Relationship Specialty Start Date End Date Joyce Isaacs MD [address] [place] [address] PCP - General Family Medicine 03/17/21 documented as of this encounter
--- OUTSIDE RECORDS SUMMARY | 2025-04-14 09:53 | XMS_ITS | Clinical Summary ---
Author Organization [employer] Address [address] [facility] [address] [place] [address] Care Team Providers Care Carpenter Supervisor Wooden Ship Name Role Phone Joyce Isaacs MD Primary Care Provider [phone] Allergies No known active allergies Medications * This document contains information received from the source organization and may not represent a complete record from that organization. fluticasone (Flonase Allergy Relief) 50 MCG/ACT nasal sprayIndications: Seasonal allergies Administer 1-2 sprays into each nostril 2 times daily. 16 g 5 023 Active methIMAzole (Tapazole) 5 MG tablet Take 5 mg by mouth in the morning. 023 Active buprenorphine-nal oxone (Suboxone) 2-0.5 MG per sublingual film DISSOLVE 1 AND 1/2 FILMS UNDER TONGUE EVERY DAY 023 Active promethazine (Phenergan) 25 MG suppositoryIndica tions:Nausea and vomiting, unspecified vomiting type Insert 1 suppository (25 mg) into the rectum every 6 (six) hours if needed for nausea or vomiting. 12 each 023 Active omeprazole (PriLOSEC) [address] capsuleIndication s:Nausea and vomiting, unspecified vomiting type TAKE 1 CAPSULE (20 MG) BY MOUTH BEFORE BREAKFAST 90 capsule 1 024 Active sucralfate (Carafate) 1 g tablet Take 1 g by mouth 2 times daily. 024 Active ondansetron ODT (Zofran-ODT) 4 MG disintegrating tablet TAKE 1 TABLET BY MOUTH EVERY 8 HOURS NEEDED FOR NAUSEA AND VOMITING 024 Active LORazepam (Ativan) 1 MG tabletIndications :Anxiety Take 1 tablet (1 mg) by mouth 2 times daily. Take 1 tab before traveling, back and forth 4 tablet 024 Active hydrOXYzine pamoate (Vistaril) 25 MG capsuleIndication s:Anxiety TAKE 1 CAPSULE BY MOUTH EVERY 6 HOURS IF NEEDED FOR ANXIETY 90 capsule 1 025 Active FLUoxetine (PROzac) 10 MG capsuleIndication s:Depression, unspecified depression type TAKE 1 CAPSULE BY MOUTH DAILY IN THE MORNING. 90 capsule 1 025 Active FLUoxetine (PROzac) 10 MG capsuleIndication s:Depression, unspecified depression type TAKE 1 CAPSULE (10 MG) BY MOUTH IN THE MORNING. 90 capsule 1 024 2024 Discontinued Active Problems Problem Noted Date Diagnosed Date Varicose veins of right lower extremity with inf lammation 04/20/2024 Right hip pain 04/20/2024 Anxiety 04/20/2024 Assessment & Plan (04/20/2024 2:38 PM EDT): Recently started around 3-4 months ago, will send trial of hydroxyzine. Will request to assess patient and f/up with provider in 2-3 weeks to assess pharmacotherapy improvement. Muscle spasm of right leg 01/25/2023 Assessment & Plan (02/26/2023 4:48 PM EDT): Patient with R lower extremity pain and stiffness in adductors and IT band upon examination. Will refer to orthopedics for further evaluation. Would benefit from evaluation from physcial therapy. Referral placed. Assessment & Plan (01/25/2023 9:24 AM EDT): Patient with chronic lower extremity pain with unknown etiology. Will scheduled follow up appointment in person to evaluate R lower extremity. Other fatigue 01/25/2023 Assessment & Plan (01/25/2023 9:23 AM EDT): Will send labs to check levels. Perimenopause 05/26/2022 Overview (01/20/2023): Last Assessment & Plan: Patient counseled that average age of menopause is 51yo and therefore she may have entered menopause by this time, however she will continue to menstruate as long as she is taking OCPs. FSH and LH ordered to assess for menopausal status. If menopause confirmed, will transition to HRT. All questions answered. Nausea and vomiting 05/26/2022 Assessment & Plan (06/02/2023 3:54 PM EST): This is a chronic issue for this patient, we have in the past trial multiple medications w/o effect including but not limited to zofran, metoclopramide, scopolamine, & antihistamine. Patient has seen previous provider in [place] but feels she will like to transition to another. At this moment increase phenergan and increased frequency of PPI to BID. Patient will be referred to Gastroenterology. Acute stress reaction 05/26/2022 Hot flashes 10/29/2020 Overview (01/20/2023): Last Assessment & Plan: Discussed that she [...] repeat BP check. Excessive sweating 05/09/2020 Overview (01/20/2023): Last Assessment & Plan: Discussed s/sx perimenopause and conservative measures including avoiding caffiene and hot drinks, dressing in layers, etc. TSH ordered Hypercare ePrescribed Recommend follow-up with PCP Menorrhagia with regular cycle 05/09/2020 Overview (01/20/2023): Given OCPs, never followed up Do not refill unless she attends next scheduled visit 05/2022 Last Assessment & Plan: Pelvic US ordered Patient to return for EMB. Encounters Date Type Department Care Team Description 03/21/2025 Refill [facility] MED & PEDS [address] [place], [place] [id number] Joyce Isaacs MD Depression, unspecified depression type from Last 3 Months Social History Tobacco Use Types Packs/Day Years Used Date Smoking Tobacco: Unknown Tobacco Cessation:Counseling Given: No Depression Answer Date Recorded Patient Health Questionnaire-9 Score 0 08/14/2024 Patient Health Questionnaire-9 Score 0 08/14/2024 Last PHQ-9: Questionnaire Data Not on file 0 08/14/2024 Housing Stability Answer Date Recorded What is your housing situation today? Not on brad e 08/14/[address] you li ve. Do you have problems with any of the following? None of the above 08/14/2024 Food Insecurity Answer Date Recorded Within the past 12 months, y ou worried that your food would run out before you got money to buy more: Never True 08/14/2024 Within the past 12 months,th e food you bought just didn't last and you didn't have enough money to get more: Never True Transportation Answer Date Recorded In the past 12 months, has l ack of transportation kept you from medical appts, meetings, work or from getting things needed for daily living? No 08/14/2024 Utilities Answer Date Recorded In the past 12 months, has t he electric, gas, oil or water company threatened to shut off services in your home? No 08/14/2024 Depression Answer Date Recorded Patient Health Questionnaire-2 Score 0 08/14/2024 Internet Access Answer Date Recorded Internet Access Q1 Yes 08/14/2024 Internet Access Q2 Not on file 08/14/2024 Comments Unknown Sex and Gender Information Value Date Recorded Sex Assigned at Female 05/18/2022 10:37 AM EDT Legal Sex Female 10:37 AM EDT Gender Identity Female 05/18/2022 10:37 AM EDT Sexual Orientation Choose not to disclose 2021 10:37 AM EDT Last Filed Vital Signs Vital Sign Reading Time Taken Comments Blood Pressure 126/73 06/02/2023 3:28 PM EST Pulse 86 06/02/2023 3:28 PM EST Temperature 35.8 C (96.4 F) 06/02/2023 3:28 PM EST Respiratory Rate 20 06/02/2023 3:28 PM EST Oxygen Saturation 98% 06/02/2023 3:28 PM EST Inhaled Oxygen Concentration - - Weight 73.2 kg (161 lb 6.4 oz) 06/02/2023 3:28 P M EST Height 164 cm (5' 4.57 ) 06/02/2023 3:28 PM EST Body Mass Index 27.22 06/02/2023 3:28 PM EST Plan of Treatment Health Maintenance Due Date Last Done Comments CT Colonography 1969 Colonoscopy 1969 Colorectal Cancer Screening 1969 FIT DNA/Cologuard 1969 FIT 1969 FOBT 1970 HIV Screening 1970 Sigmoidoscopy 1969 Disability Screening 1969 DTaP/Tdap/Td Vaccines (1 - Tdap) 1988 Hepatitis B Vaccines (1 of 3 - 19+ 3-dose series) 1988 Pneumococcal Vaccine: 50+ Years (1 of 1 - PCV) 10/22/2019 Zoster Vaccines (1 of 2) 10/22/2019 SDOH Screening 01/26/2024 01/25/2023 COVID-19 Vaccine ( - 2023-2 5 season) 2025 Influenza Vaccine (#1) 2025 Cervical Cancer Screening 04/18/2025 HPV/Cotest 04/18/2025 04/18/2020 Pap Smear 04/18/2025 04/18/2020 Tobacco Screening 04/20/2025 04/20/2024 Alcohol/Substance Use Screening 08/14/2025 08/14/2024 Depression Screening 08/14/2025 08/14/2024, 08/14/2024 Mammogram 04/08/2026 04/08/2024, 04/03/2023 RSV Patients and Patients Aged 60 years or older (1 - 1-dose 75+ series) 2044 Hepatitis C Screening Completed 04/23/2020 HIB Vaccines Aged Out No longer eligi [...] patient's age to complete this topic Meningococcal Vaccine Aged Out No pily dhiraj eligible based on patient's age to complete this topic RSV under 20 months Aged Out No longe r eligible based on patient's age to complete this topic Rotavirus Vaccines Aged Out No longer eligible based on patient's age to complete this topic Procedures Procedure Name Priority Date/Time Associated Diagnosis Comments BI MAMMOGRAM SCREENING TOMOSYNTHESIS BILATERAL Routine 04/08/2024 9:57 AM EDT ZZZ HISTORICAL HEPATITIS C AB W/REFL TO HCV RNA, QN, PCR Routine 04/23/2020 1:08 PM EDT HM PAP/HPV Routine 04/18/2020 from Last 3 Months or Most Recently Relevant to Health Maintenance Results * BI Mammogram Screening Tomosynthesis Bilateral (04/08/2024 9:57 AM EDT) Anatomical Region Laterality Modality Breast Bilateral Mammography 04/08/2024 9:57 AM EDT Narrative 04/20/2024 11:12 AM EDT [facility] [address] [place], [place] [address] Mammography Report Signed Patient: Agustina Stephens MR#: [id number] : 1970 Acct:[id number] Age/Sex: 53 / F ADM Date: 04/08/24 Loc: HO.MAMMO Attending Dr: Joyce Isaacs MD Ordering Physician: Joyce Isaacs MD Results: 1Nega tive Date of Service: 04/08/24 Follow Up: 1 Year From Orig inal Mammogram Procedure(s): MM tomosynthesis screening BI Accession Number(s): [id number] cc: Joyce Isaacs MD EXAMINATION: MM SCREENING DIGITAL BREAST TOMOSYNTHESIS, BILATERAL CLINICAL INFORMATION: Screening. Asymptomatic. COMPARISON: Mammography: Comparison is made with available priors TECHNIQUE: Digital breast mammography with tomosynthesis is performed in both the craniocaudal and mediolateral oblique views along with computer-aided detection (CAD). FINDINGS: The breasts are heterogeneously dense, which may obscure small masses (ACR BI-RADS breast composition Category c). There are no significant masses, abnormal calcifications, or other abnormalities. MM/MM tomosynthesis screening BI IMPRESSION: No mammographic evidence of malignancy. ASSESSMENT: BI-RADS BI-RADS 1 - Negative RECOMMENDATION: Routine annual mammography screening. 1 year F/U This examination should not preclude the clinical evaluation of a suspicious palpable abnormality. This patient's information was entered into a reminder system with a target due date for their next mammogram. Electronically signed by: Michelle Butts DO 04/20/2024 11:09 AM EDT Dictated By: Michelle Butts DO Signed By: <Electronically signed by Michelle Butts DO in OV> 04/20/24 1109 DD/ 0957 TD/TT: 04/08/24 1013 Information Systems Analyst: Procedure Note Donotuseinterpreter, Image - 04/20/2024 [facility] [address] [place] [address] Mammography Report Signed Patient: Agustina StephensMR#: [id number] : 1970Acct:[id number] Age/Sex: 53 / FADM Date: 04/08/24 Loc: .MAMMO Attending Dr: Joyce Isaacs MD Ordering Physician: Joyce Isaacs MDResults: 1Nega tive Date of Service: 04/08/24Follow Up: 1 Year From Orig inal Mammogram Procedure(s): MM tomosynthesis screening BI Accession Number(s): [id number] cc: Joyce Isaacs MD EXAMINATION: MM SCREENING DIGITAL BREAST TOMOSYNTHESIS, BILATERAL CLINICAL INFORMATION: Screening. Asymptomatic. COMPARISON: Mammography: Comparison is made with available priors TECHNIQUE: Digital breast mammography with tomosynthesis is performed in both the craniocaudal and mediolateral oblique views along with computer-aided detection (CAD). FINDINGS: The breasts are heterogeneously dense, which may obscure small masses (ACR BI-RADS breast composition Category c). There are no significant masses, abnormal calcifications, or other abnormalities. MM/MM tomosynthesis screening BI IMPRESSION: No mammographic evidence of malignancy. ASSESSMENT: BI-RADS BI-RADS 1 - Negative RECOMMENDATION: Routine annual mammography screening. 1 year F/U This examination should not preclude the clinical evaluation of a suspicious palpable abnormality. This patient's information was entered into a reminder system with a target due date for their next mammogram. Electronically signed by: Michelle Butts DO 04/20/2024 11:09 AM EDT RP Dictated By: Michelle Butts DO Signed By: <Electronically signed by Michelle Butts DO in OV> 04/20/24 1109 DD/ 0957 TD/TT: 04/08/24 1013 Information Systems Analyst: us Joyce Isaacs MD IMG BI PROCEDURES Edited Resu lt - Final * HEPATITIS C AB W/REFL TO HCV RNA, QN, PCR (04/23/2020 1:08 PM EDT) HEPATITIS C ANTIBODY NON-REACT KARYNA NON-REACT KARYNA [facility] INDEX 0.01 <1.00 [facility] Comment: HCV antibody was non-reactive. There is no laboratory evidence of HCV infection. In most cases, no further action is required. However, if recent HCV exposure is suspected, a test for HCV RNA (test code 92231) is suggested. For additional information please refer to http://[employer]/faq/JMK58g0 (This link is being provided for informational/ educational purposes only.) HEPATITIS C ANTIBODY NON-REACT KARYNA NON-REACT KARYNA [facility] INDEX 0.01 <1.00 [facility] Comment: HCV antibody was non-reactive. There is no laboratory evidence of HCV infection. In most cases, no further action is required. However, if recent HCV exposure is suspected, a test for HCV RNA (test code 16097) is suggested. For additional information please refer to http://[employer]/faq/ZDW98b3 (This link is being provided for informational/ educational purposes only.) 04/23/2020 1:08 PM EDT Joyce Isaacs MD HISTORICAL/NON ORDERABLE LABS Final Result [facility] [address] * HM PAP/HPV (04/18/2020) Pap Smear 1. NILM 1. NILM HPV Not Detected Undetected, Indeterminat e, Quantitative , Not Detected Historical Provider MD HEALTH MAINTENANCE Final Result from Last 3 Months or Most Recently Relevant to Health Maintenance Insurance [facility] Care Teams Carpenter Supervisor Wooden Ship Relationship Specialty Start Date End Date Joyce Isaacs MD [address] [place] [address] PCP - General Family Medicine 03/17/21
--- OUTSIDE RECORDS SUMMARY | 2025-04-14 09:53 | XMS_ITS | Encounter Summary ---
Author Organization [employer] Address [address] [facility] [address] [place] [address] Care Team Providers Care Scientific Software Engineer Name Role Phone Joyce Isaacs MD Primary Care Provider [phone] Reason for Visit * Reason Comments Med Change Request Encounter Details Date Type Department Care Team ([facility] Contact Info) Description 06/02/2023 Refill [facility] MED & PEDS [address] [place] [address] Joyce Isaacs MD [address] [place] [address] Nausea and vomiting, unspecified vomiting type Social [...] documented as of this encounter Care Teams Scientific Software Engineer Relationship Specialty Start Date End Date Joyce Isaacs MD [address] [place] [address] PCP - General Family Medicine 03/17/21 documented as of this encounter
== END 2025-04-14 09:52 | disposition home or self-care (01) ==
LOC: HO.MAMMO 09:51
PROVIDERS: PCP Family Medicine; Visit Provider Family Medicine
DX: Z12.31 Encounter for screening mammogram for malignant neoplasm of breast (principal)
CPT/HCPCS: 77063; 77067

== ENCOUNTER → 2025-04-14 10:00 | Outpatient (BNV) | payer OTHER, SELFPAY | PROVIDERS: PCP Family Medicine; Visit Provider Internal Medicine | DX: Z12.31 Encounter for screening mammogram for malignant neoplasm of breast (principal) | CPT/HCPCS: 77063; 77067 ==

== ENCOUNTER 2025-04-25 09:46 | Outpatient (REF) | payer OTHER, SELFPAY | END 2025-04-25 09:47 | disposition home or self-care (01) | LOC: HO.HOSX 09:46 | PROVIDERS: Visit Provider Orthopaedic Surgery | DX: Z13.89 Encounter for screening for other disorder (principal) ==